=== PATIENT | female | born 1975 | race Caucasian/White ===

== ENCOUNTER → 2017-06-21 | Outpatient (CLI) | payer BC ==
[2017-06-21 18:06] LABS: THYROID STIMULATING HORMONE 0.961 uIu/ml (0.300-4.500)
== END | disposition home or self-care (01) ==
LOC: C.LAB1850 16:22
PROVIDERS: ATTEND Family Medicine
DX: R53.83 Other fatigue (principal); E55.9 Vitamin D deficiency, unspecified

== ENCOUNTER 2020-04-30 05:59 | Observation (INO) ==
--- NOTE | 2020-04-28 16:06 | Anesthesiology Consultation ---
Date of Service April 28, 2020 Assessment & Plan (1) Encounter for pre-operative examination: Chart Review Chart Review: Acceptable Risk for Surgery and Patient NOT seen in Pre Admission Testing - Check test AM DOS Per nursing assessment 04/25/20, patient traveled to [facility] for medical appt one week ago. Covid test 04/23/20= Negative History Surgery Operation Date: 04/30/20 07:30 Proposed Procedures p Panniculectomy - Nahomy Bolaños MD Height/Weight Height: 5 ft 6 in Weight: 104.326 kg Allergies Allergy/AdvReac Type Severity Reaction Status Date / Time Penicillins Allergy Severe Anaphylaxis Unverified 04/25/20 08:40 Medications Home Medications Medication Instructions Recorded Confirmed Last Taken oxycodone-acetaminophen 5 mg-325 1 tab PO Q4H PRN 3 Days #18 tab 04/24/20 04/25/20 Unknown mg tablet Rituxan 1 dose IV Q8WK 04/25/20 04/25/20 Unknown multivitamin 1 tab PO DAILY 04/25/20 04/25/20 Unknown Past Medical History Medical History Arthritis Cardiac murmur does not follow w/ cardio. last echo spring 2018 [facility] Hiatal hernia Non-Hodgkin lymphoma s/p chemo - last treatment May 2019; maintenance IV Rituxan q8w Past Family History Family History Mother Kidney disease Past Surgical History Surgical History History of x 2 History of colonoscopy History of lymph node biopsy x 2 History of removal of Port-a-Cath History of tonsillectomy and adenoidectomy History of vascular access device Social History Smoking Status: Never smoker Do You Dip or Chew Tobacco: No Hx Alcohol Use: Yes Alcohol type: beer, wine and hard liquor alcohol intake frequency: a few times a week Hx Substance Use: No substance use type: does not use Testing Laboratory Results 04/16/20= WBC: 5.5 H/H: 14.2/42.4 PLATELETS: 252 SODIUM: 138 POTASSIUM: 4.2 CHLORIDE: 102 CO2: 28 BUN: 16 CREATININE: 0.69 GLUCOSE: 75 Echocardiogram Date: 01/26/19 EF: 55-59% LV Function: normal RWMA: + none Valvular Disease: + no significant valvular disease
[2020-04-30] MEDS ORDERED: CLINDAMYCIN 600 MG/54 ML BAG IV SCH (06:00)
[2020-04-30] MEDS ORDERED: LR 15ML/HR IV SCH (06:00)
[2020-04-30] MEDS ORDERED: ACETAMINOPHEN 1000 MG/100 ML IV IV ONE (06:21)
[2020-04-30] MEDS ORDERED: LARYING-O-JET KIT (LTA) ONE (06:42)
[2020-04-30] MEDS ORDERED: ONDANSETRON INJ 2 MG/ML 2 ML VIAL ONE (06:42)
[2020-04-30] MEDS ORDERED: LIDOCAINE HCL 2% 2 ML VIAL/AMP(20MG/ML) INFIL ONE (06:42)
[2020-04-30] MEDS ORDERED: DEXAMETHASONE SOD INJ 4 MG/ML VIAL ONE (06:42)
[2020-04-30] MEDS ORDERED: PROPOFOL IV EMULSION 10 MG/ML 20 ML VIAL IV ONE (06:42)
[2020-04-30] MEDS ORDERED: ROCURONIUM BROMIDE 10 MG/ML 5 ML VIAL ONE (06:42)
[2020-04-30] MEDS ORDERED: MIDAZOLAM HCL 1 MG/ML 2ML VIAL ONE (06:42)
[2020-04-30] MEDS ORDERED: fentaNYL citrate 100 MCG/2 ML VIAL ONE ×2 (06:42→09:52)
--- NOTE | 2020-04-30 06:56 | History & Physical Bridge Note ---
Date of Service April 30, 2020 History & Physical Bridge Note I have examined the patient, reviewed the History & Physical and in the interval since the performance of the History & Physical I have noted the following changes of clinical significance: Covid-19 test negative.
[2020-04-30] MEDS ORDERED: LIDOCAINE/EPINEPHRINE 1% 20 ML VIAL ONE (06:57)
[2020-04-30] MEDS ORDERED: BUPIVACAINE 0.25% 30 ML VIAL ONE (06:57)
[2020-04-30] MEDS ORDERED: METOCLOPRAMIDE HCL INJ 5 MG/ML 2 ML VIAL IV PRN (07:13)
[2020-04-30] MEDS ORDERED: fentaNYL citrate 100 MCG/2 ML VIAL IV PRN (07:13)
[2020-04-30] MEDS ORDERED: PROMETHAZINE HCL 12.5 MG in SODIUM CHLORIDE 0.9% 50 ML IV PRN ×2 (07:13→10:28)
[2020-04-30] MEDS ORDERED: HYDROmorphone INJ 2 MG/ML SYR/VIAL IV PRN (07:13)
[2020-04-30] MEDS ORDERED: ePHEDrine sulfate 50 MG/ML AMP IV PRN (07:13)
[2020-04-30] MEDS ORDERED: ATROPINE SULFATE 0.1 MG/ML 10ML SYR IV PRN (07:13)
[2020-04-30] MEDS ORDERED: ONDANSETRON INJ 2 MG/ML 2 ML VIAL IV PRN ×2 (07:13→10:28)
[2020-04-30] MEDS ORDERED: KETOROLAC 30 MG/ML VIAL ONE (09:52)
--- NOTE | 2020-04-30 10:18 | Post Operative Brief Note ---
PG Immediate Post Op with CF Date of Surgery April 30, 2020 Pre & Post Diagnosis Operation Date: 04/30/20 07:30 Pre-Op Diagnosis: Abdominal Pannus Post-Op Diagnosis: Abdominal Pannus I identified the patient and participated in the time-out.: Yes Procedure Operation Date: 04/30/20 07:30 Actual Procedures p Panniculectomy - Nahomy Bolaños MD Surgeon Nahomy Bolaños MD Stores Assistant Pooja Licona PA-C Estimated Blood Loss 25 Findings Consistent with Post-Op Diagnosis Specimens Specimen Description: Permanent Specimen A: Abdominal pannus Drains Odilon Drain (x2)
--- NOTE | 2020-04-30 10:27 | Operative Report ---
PG Post Operative Report Pre & Post Diagnosis Operation Date: 04/30/20 07:30 Pre-Op Diagnosis: Abdominal Pannus Post-Op Diagnosis: Abdominal Pannus I identified the patient and participated in the time-out.: Yes Procedure Operation Date: 04/30/20 07:30 Actual Procedures p Panniculectomy - Nahomy Bolaños MD Surgeon Nahomy Bolaños MD Administrative Support Assistant Pooja Licona PA-C Estimated Blood Loss 25 Findings Consistent with Post-Op Diagnosis Specimens abdominal pannus to pathology Drains RICHARD x2 Anesthesia Type General Complications none Disposition Disposition: Recovery Room Indications overhanging abominal pannus, intertrigo Description of Procedure Risks, benefits, and alternatives of the procedure were explained to the patient who agreed and signed consent. She was identified and marked in the preoperative holding area. She was brought to the operating room where she was positioned supine and placed under general anesthesia without incident. Bailey catheter was placed. Surgical site was prepped and draped sterilely. A time-out procedure was performed. I reassessed my markings which included a lower horizontal abdominal incision with the midportion 7 cm above the vulvar commissure. Incision was marked bilaterally to the ASIS. I began by injecting 1% lidocaine with epinephrine along the planned incision. The lower abdominal incision was made using a 15-blade scalpel to incise epidermis and superficial dermis followed by electrocautery to incise deep dermis, subcutaneous fat, Joby's fascia down to the abdominal wall. Care was taken to bevel superiorly in order to avoid encountering the inguinal region. Electrocautery was used to elevate the anterior abdominal skin flap ligating the perforating vessels with electrocautery. Dissection was carried up to the level of the umbilicus in the midline. At this point, a 15-blade scalpel was used to circumscribe the umbilicus. A vertical midline incision was then made from the incision to the umbilicus and divided in the midline using electrocautery. The umbilicus was then dissected out using electrocautery down to abdominal wall. The umbilical stalk appeared viable throughout the procedure. In order to facilitate inset of the umbilicus, dissection was continued for about an additional 6 cm superior to the umbilicus. At this point, the bed was flexed and the mid portion of the superior skin flap was inset above the mons pubis using 2-0 Vicryl suture. Skin flaps were marked for excision. A 15-blade scalpel was used to make these incisions and the incision was deepened through dermis, subcutaneous fat, Joby's fat using electrocautery. 15 [place] Odilon drains were placed in the wound bed and brought out through a separate stab incision in the mons pubis. The drains were sutured into place using 3-0 nylon. The umbilicus was brought out through an inverted triangular incision in the abdominal wall. This was performed using a 15-blade scalpel. Prior to closure, a total of 10 mL of 0.25% Marcaine plain were injected into the fascia as well as along the incisions. Wound closure was then begun lateral to medial using 2-0 Vicryl Joby's fascia sutures, 2-0 Vicryl deep dermal sutures, 2-0 PDO running superficial Quill suture, 3-0 Monocryl running subcuticular suture. Umbilicus was brought out through the inverted triangle incision and was sutured into place using 4-0 chromic half buried horizontal mattress sutures. The umbilicus was dressed using Xeroform and the incision was dressed using Dermabond Prineo followed by d ry dressings and an abdominal binder. The procedure was tolerated well. The patient was awakened and transferred to recovery in satisfactory condition. EBL 25 cc. Pooja Licona was present and scrubbed throughout the entire procedure and was instrumental in providing retraction of the pannus and assisting in simultaneous wound closure. I attest to the content of the Intraoperative Record and any orders documented therein. Any exceptions are noted below.
[2020-04-30] MEDS ORDERED: MoRPHine SULFATE 4 MG/ML 1 ML CARP\\VIAL IV PRN ×2 (10:28→10:44)
[2020-04-30] MEDS ORDERED: DiphenhydrAMINE HCL 50 MG/ML VIAL IV PRN (10:28)
[2020-04-30] MEDS ORDERED: LORazepam 0.5 MG TAB PO PRN (10:28)
[2020-04-30] MEDS ORDERED: MoRPHine SULFATE 2 MG/ML CARP IV PRN (10:28)
[2020-04-30] MEDS ORDERED: ACETAMINOPHEN 325 MG TAB PO PRN (10:28)
[2020-04-30] MEDS ORDERED: OXYCODONE/ACETAMINOPHEN 5mg/325mg TAB PO PRN ×2 (10:28)
--- NOTE | 2020-04-30 12:04 | Anesthesiology Progress Note ---
Date of Service April 30, 2020 Anesthesia Post Procedure Vital Signs Vital Signs: Temp Pulse Pulse Resp BP BP Pulse Ox 04/30/20 11:54 91 H 16 128/88 100 04/30/20 11:35 36.5 C 93 H 16 127/87 98 04/30/20 11:15 36.2 C L 88 13 128/83 98 04/30/20 11:00 88 13 136/84 98 04/30/20 10:50 104 H 12 122/86 97 04/30/20 10:40 107 H 14 130/83 98 04/30/20 10:30 36.6 C 113 H 18 137/113 H 95 04/30/20 06:27 36.7 C 69 16 127/93 100 Pain Intensity Abdomen: Pain Intensity: 3 Transfer of Care Handoff Completed per policy Notes Mental Status: alert / awake / arousable and participated in evaluation Patient Amnestic to Procedure: Yes Nausea / Vomiting: adequately controlled Pain: adequately controlled Airway Patency, RR, SpO2: stable & adequate BP & HR: stable & adequate Hydration State: stable & adequate Anesthetic Complications: no major complications apparent
--- NOTE | 2020-04-30 12:36 | Post Operative Brief Note ---
PG Immediate Post Op with CF Date of Surgery April 30, 2020 Pre & Post Diagnosis Operation Date: 04/30/20 07:30 Pre-Op Diagnosis: Abdominal Pannus Post-Op Diagnosis: Abdominal Pannus Procedure Operation Date: 04/30/20 07:30 Actual Procedures p Panniculectomy - Nahomy Bolaños MD Surgeon Pooja Licona PA-C Financial Assistance Specialist Pooja Licona PA-C Estimated Blood Loss 25 Specimens Specimen Description: Permanent Specimen A: Abdominal pannus Drains Odilon Drain (x2) Anesthesia Type General
--- NOTE | 2020-04-30 12:40 | Surgery Progress Note ---
Date of Service April 30, 2020 Assessment & Plan (1) S/P panniculectomy: s/p panniculectomy POD#0 dressings intact and drains with appropriate output Patient informed she has medications ordered for nausea reviewed activity restrictions for the night, will d/c in AM Subjective Gladis is resting in semi-mccain position, s/p panniculectomy. She complains of nausea, no other concerns. VSS Physical Exam Physical Exam: dressings intact without saturation. drains with scant bloody output, no significant change in output from end of surgery Results & Data Vital Signs (Past 12 Hours) Vital Signs Temp Pulse Pulse Resp BP BP Pulse Ox 04/30/20 11:54 91 H 16 128/88 100 04/30/20 11:35 36.5 C 93 H 16 127/87 98 04/30/20 11:15 36.2 C L 88 13 128/83 98 04/30/20 11:00 88 13 136/84 98 04/30/20 10:50 104 H 12 122/86 97 04/30/20 10:40 107 H 14 130/83 98 04/30/20 10:30 36.6 C 113 H 18 137/113 H 95 04/30/20 06:27 36.7 C 69 16 127/93 100 PG Care Time/CCT Total # of Minutes Spent Total Time Spent with Patient: Total time spent is greater than 50% in coordination of care (as documented) at patient's floor/unit and/or counseling patient: Coding Level of Care Code None Diagnoses S/P panniculectomy Z98.890
[2020-04-30] MEDS: D5W AND 1/2NSS 1,000 ML IV SCH (13:16)
[2020-04-30] MEDS: ENOXAPARIN INJ 40 MG/0.4 ML SYR SQ SCH (13:17)
[2020-04-30] MEDS: CLINDAMYCIN 600 MG in DEXTROSE 5% 50 ML IV SCH ×2 (16:06→23:18)
[2020-05-01] MEDS: D5W AND 1/2NSS 1,000 ML IV SCH (02:37)
--- NOTE | 2020-05-01 08:24 | Anesthesiology Progress Note ---
Date of Service May 01, 2020 Anesthesia Post Procedure Vital Signs Vital Signs: Temp Pulse Pulse Resp BP Pulse Ox 05/01/20 07:30 36.7 C 64 16 118/76 100 05/01/20 03:47 36.6 C 52 L 16 104/70 98 04/30/20 23:44 36.8 C 68 16 104/66 95 04/30/20 19:52 36.6 C 66 17 123/75 96 04/30/20 14:55 85 16 118/87 98 04/30/20 13:30 61 16 124/80 96 04/30/20 13:28 58 L 16 113/76 95 04/30/20 12:40 74 16 121/76 98 04/30/20 11:54 91 H 16 128/88 100 04/30/20 11:35 36.5 C 93 H 16 127/87 98 04/30/20 11:15 36.2 C L 88 13 128/83 98 04/30/20 11:00 88 13 136/84 98 04/30/20 10:50 104 H 12 122/86 97 04/30/20 10:40 107 H 14 130/83 98 04/30/20 10:30 36.6 C 113 H 18 137/113 H 95 Pain Intensity Abdomen: Pain Intensity: 2 Notes Mental Status: alert / awake / arousable and participated in evaluation Nausea / Vomiting: adequately controlled Pain: adequately controlled Airway Patency, RR, SpO2: stable & adequate BP & HR: stable & adequate Hydration State: stable & adequate Anesthetic Complications: Pt Satisfied with anesthetic care
[2020-05-01] MEDS: ENOXAPARIN INJ 40 MG/0.4 ML SYR SQ SCH (08:34)
[2020-05-01] MEDS: CLINDAMYCIN 600 MG in DEXTROSE 5% 50 ML IV SCH (08:39)
[2020-05-01] MEDS ORDERED: MULTIVITAMIN TAB PO SCH (09:00)
--- NOTE | 2020-05-01 10:06 | Surgery Progress Note ---
Date of Service May 01, 2020 Assessment & Plan (1) S/P panniculectomy: s/p panniculectomy POD#1 Patient instructed on dressing changes. D/C home today after voiding and follow- up via teleheath tomorrow. All questions answered. Subjective POD#1 Nausea resolved and tolerating regular diet. Catheter removed- patient has not voided yet but has ambulated. Gladis is resting in semi-mccain position, s/p panniculectomy. She complains of nausea, no other concerns. VSS Physical Exam Skin: drains stripped with minimal bloody and serous output. umbilicus viable. patient instructed on how to change umbilical dressing and drain sites daily with Xeroform. Results & Data Vital Signs (Past 12 Hours) Vital Signs Temp Pulse Pulse Resp BP Pulse Ox 05/01/20 09:09 36.7 C 85 64 16 118/76 100 05/01/20 07:30 36.7 C 64 16 118/76 100 05/01/20 03:47 36.6 C 52 L 16 104/70 98 04/30/20 23:44 36.8 C 68 16 104/66 95 PG Care Time/CCT Total # of Minutes Spent Total Time Spent with Patient: Total time spent is greater than 50% in coordination of care (as documented) at patient's floor/unit and/or counseling patient: Coding Level of Care Code None Diagnoses S/P panniculectomy Z98.890
--- NOTE | 2020-05-01 13:49 | Discharge Summary ---
Date of Service May 01, 2020 Admission HPI Per Admitting Provider see admission H&P Admission Exam Per Admitting Provider see admission H&P Principal Diagnosis s/p panniculectomy Discharge Exam Skin incision CDI, no evidence of infection. umbilicus viable. drains with serosang output Discharge Data Allergies Allergy/AdvReac Type Severity Reaction Status Date / Time Penicillins Allergy Severe Anaphylaxis Verified 04/30/20 06:25 Procedures Performed Operation Date: 04/30/20 07:30 Actual Procedures p Panniculectomy - Nahomy Bolñaos MD Hospital Course (1) S/P panniculectomy: Patient presented to [facility] with history of abdominal pannus. She was taken to the OR and underwent panniculectomy. There were no intraoperative complications. She was taken to recovery and transferred to med/surg for observation. On POD#1, she was feeling well. She was tolerating a regular diet and ambulating. She was able to void after catheter was removed. On exam, her vitals were stable. Her incisions were CDI. Her drains had appropriate output. She was discharged home with instructions to follow-up with the office in one day. Total Time Total Time Spent Total Time Spent (In Minutes): 20 Total Time Includes: Examination of the Patient, Discharge Planning, Medication Reconciliation and Communication With Other Providers Discharge Plan Discharge Items Patient Disposition: Home - Self-Care Reason For Visit: Abdominal Pannus Discharge Diagnosis: s/p panniculectomy Activity: As commented below Non-emergency contact: Surgeon Call non-emergency contact if: you have any medication questions, your pain is not controlled, you have a fever, your wound has increased redness and your wound has increased drainage Follow-up/Referrals: Ronaldo Brenner [Primary Care Provider] - Diet: Regular Addtl Attending Provider Instructions: ACTIVITY RECOMMENDATIONS: __Normal activities _x_No bending, lifting or straining __No driving _x_Driving allowed when you are off pain medications and you feel you can safely drive _x_Walking permitted __You should have help at home for ___ days DRESSINGS: __No dressings required __Keep dressings dry/in place until first office visit x__Remove dressings _tomorrow during telehealth visit__ and leave dressings off. Must wear binder for first 6 weeks. Recommend garment (underwear/shirt) under binder for comfort. change belly button dressing daily __Apply ice ___ days __Remove dressings and reapply garment __Apply antibiotic ointment (Bacitracin, Neosporin, etc) to wounds 3-4 times/day for 10 days BATHING: _x_Keep dressings dry __Sponge bathing permitted _x_Showering permitted tomorrow after telehealth visit _x_No swimming, hot tubs or soaking in a tub MEDICATIONS: Resume previous medications unless instructed otherwise by your surgeon. _x_Do not use aspirin, Motrin, Advil or Ibuprofen as these may promote bleeding. Please use Tylenol. x__Prescription(s) provided: pain medication was provided at your last office visit OTHER INSTRUCTIONS: _x_Record drain output 2-3 times per day. Drain is ready to be removed hen output is 10cc/24 hours for 2 days. One drain may be ready before the other. Call the office if you feel drain is ready to be removed and we will provide a time for you to come to the office SPECIAL CARE INSTRUCTIONS: * It is normal to have a mild fever after surgery. If your temperature is higher than 101.5 degrees F, please call the office at [phone]. * Constipation is a typical side effect of pain medication. An [id number]-[id number] stool softener will help relieve this. * Leaking around surgical drains may occur and should not cause concern. Sometimes these drains become clogged. If this happens, remove the bulb and milk the clot out of the tube, then replace the bulb. * Drainage from wounds after liposuction is normal and should be expected. Garments will become soiled. You should protect furniture and bedding. This drainage should mostly subside within 2-3 days. Leave garments in place unless instructed to remove them. * If you have unusual drainage from a wound or are concerned you have an infection or have any questions or concerns, please call the office at [phone]. FOLLOW UP VISIT: If not already scheduled, please call the office, , when you return home after surgery to schedule an appointment to be seen in _13__ days. Pending Studies at Discharge: Yes Studies:: pathology Stand-Alone Forms: [facility], Opioid Pain Management, Smoking Cessation Medications and DC Order Prescriptions: Continued oxycodone-acetaminophen [Percocet] 5-325 mg tablet 1 tab PO Q4H PRN (Reason: pain) 3 Days Qty: 18 RF: 0 multivitamin Tablet 1 tab PO DAILY RF: 0 Rituxan 1 dose IV Q8WK RF: 0 Discharge Orders: Discharge Order (Routine); Ordered 05/01/20 Ordered By: Pooja Hackett/Other Patient Handouts: DVT Prevention Admission Data Admit Date/Time: 04/30/20 10:28 Attending Provider: Nahomy Bolaños Admit Provider: Nahomy Bolaños Primary Care Provider: Ronaldo Brenner Other Interventions: Discharge Summary Assessment (RN) Last Done: 05/01/20 09:09 DC Date/Time DO NOT enter until pt leaves facility: 05/01/20 11:03 Coding Level of Care Code D/C Day Management <30 mins Diagnoses S/P panniculectomy Z98.890
== END 2020-05-01 11:03 | disposition home or self-care (01) ==
LOC: 3N 05:59 → ASU 05:59

== ENCOUNTER 2024-02-10 22:59 | Inpatient (IN) ==
--- NOTE | 2024-02-10 23:30 | Emergency Department Note ---
Impression & Plan Pneumonia, SIRS (systemic inflammatory response syndrome), Immunocompromised ED Provider Note NAME: ANTHONY ASTUDILLO AGE: 48 SEX: F : 1975 ARRIVES VIA: Walk-In INFORMANT: Patient ED PROVIDER(S): Gino Freeman MD CHIEF COMPLAINT: Fever, cough, Lymphoma on Immunotherapy., referred. PLAN: Disposition: Admit MEDICAL DECISION MAKING: The patient is a pleasant 48-year-old woman with a past medical history of lymphoma undergoing immunotherapy via [facility] who presents to the emergency department for evaluation of 5 days of daily fevers with cough, congestion. She reports she is on prophylactic Bactrim and anti-viral. She reports she did contact her oncology office on and was able to be seen earlier today in [place]. She reports that she reviewed her symptoms and fevers with her specialist in reports that she was told that she should go directly to the hospital if she is having fevers in the future. However she reports that she did not have a fever in the office today. She reports she had a urine analysis performed and a culture is pending. She was started on levofloxacin and told to hold her Bactrim for now. She was instructed to present to the hospital if fevers continue. She reports fevers resumed this evening and so presents for evaluation. She reports mild nausea but denies vomiting or diarrhea. She denies chest pain or significant notes of breath. On my evaluation the patient is fatigued, uncomfortable in no acute distress, febrile to 39.5 with heart rate in the 120s and vital signs otherwise stable. She appears clinically dry. Lungs are slightly diminished in the left upper lung maciel and otherwise clear. Normal respiratory effort. EKG without overt acute ischemia. Chest x-ray with increased left upper lung field densities suspicious for pneumonia per my preliminary independent interpretation. WBC 3.9K without neutrophilia or left shift. There is mild lymphopenia of 0.48. Hemoglobin and platelets within normal limits. Chemistry without metabolic acidosis. Lactic acid 1.4, within normal limits. LFTs unremarkable. High- sensitivity troponin 3.1, within normal limits. Procalcitonin is undetectable. Respiratory viral panel/[employer] was negative. CTA of the chest negative for PE though further characterizes dense consolidation of majority of the left upper lobe. Blood cultures were obtained on arrival due to presentation concerning for SIRS/sepsis. Empiric antibiotics ordered. Patient did receive 2 L normal saline, 30+ cc per kilogram per ideal body weight. Case was discussed with MAG Valdes hospitalist, who will evaluate the patient for admission. Further management per admitting team. Triage Nursing notes reviewed and agree them. Prior/external medical records reviewed Vital Signs: reviewed Differential diagnosis: Sepsis, UTI, pneumonia, metabolic, electrolyte abnormalities, cardiac sources, intracerebral event, toxicologic, neurologic, as well as other pathologies. ER treatment provided: See below. Diagnostics interpreted by me: ECG: Sinus tachycardia, 119 bpm, no ectopy, left anterior fascicular block, incomplete right bundle branch block, LVH, no overt ST elevation or depression, QTc 422, QRS 86. Cardiac Monitoring: An order for continuous cardiac monitoring was placed and demonstrated inus tachycardia, 119 bpm, no ectopy. Laboratory studies: See below Imaging studies: See below Consultation(s): Case was discussed with MAG Valdes hospitalist, who will evaluate the patient for admission. HPI: The patient is a pleasant 48-year-old woman with a past medical history of lymphoma undergoing immunotherapy via [facility] who presents to the emergency department for evaluation of 5 days of daily fevers with cough, congestion. She reports she is on prophylactic Bactrim and anti-viral. She reports she did contact her oncology office on and was able to be seen earlier today in [place]. She reports that she reviewed her symptoms and fevers with her specialist in reports that she was told that she should go directly to the hospital if she is having fevers in the future. However she reports that she did not have a fever in the office today. She reports she had a urine analysis performed and a culture is pending. She was started on levofloxacin and told to hold her Bactrim for now. She was instructed to present to the hospital if fevers continue. She reports fevers resumed this evening and so presents for evaluation. She reports mild nausea but denies vomiting or diarrhea. She denies chest pain or significant notes of breath. ROS: See above HPI for pertinent positives & negatives. A total of 10 systems reviewed and were otherwise negative. VITALS:See Below PHYSICAL EXAMINATION: GENERAL: Awake, alert, fatigued-appearing, in no distress, BMI 39.2 HENT: Normocephalic, atraumatic. Oropharynx with dry mucous membranes and otherwise unremarkable. EYES: Normal conjunctiva. Sclera non-icteric. NECK: Supple. No nuchal rigidity. FROM. No JVD. RESPIRATORY: Lungs are slightly diminished in the left upper lung maciel and otherwise clear. Normal respiratory effort. CARDIAC: Tachycardic rate, normal rhythm. Extremities warm and well perfused. Pulses equal. ABDOMEN: Soft, non-distended. No tenderness to palpation. No rebound or guarding. No masses. RECTAL: Deferred. MUSCULOSKELETAL: Chest examination reveals no tenderness. The back is symmetrical on inspection without obvious abnormality. There is no CVA tenderness to palpation. No joint edema. LOWER EXTREMITIES: Calves are equal size bilaterally and non-tender. No edema. No discoloration. NEURO: Normal sensorium. No sensory or motor deficits noted. SKIN: No rash or jaundice noted. ED COURSE: Critical Care: I have personally spent greater than 35 minutes of critical care time in the direct management of this patient. This includes bedside care, interpretation of diagnostic studies, and testing, discussion with consultants, patient, and family members, and other required patient management activities. This 35 minutes is in excess of all separately billable procedures. Gino Freeman MD Past Med/Surg History Medical History History of COVID-19 11/2022--mild symptoms, no symptoms now Hiatal hernia Cardiac murmur does not follow w/ cardio. last echo spring 2018 [facility] Non-Hodgkin lymphoma s/p chemo - last treatment AprilMAY 2019 - on revlimid. Undergoing immunotherapy every 3 weeks Arthritis Surgical History History of abdominal surgery umbilical scar revision Dr. Bolaños 10/2020 History of surgery lymph node dissection S/P panniculectomy (~04/30/20) Dr. 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 Beliefs That Will Affect Care: None Current Living Situation: Family Feels Safe at Home: Yes Assistive Devices: None Allergies Allergies Allergy/AdvReac Type Severity Reaction Status Date / Time Penicillins Allergy Severe Anaphylaxis Verified 09/29/23 14:02 Home Meds Home Medications Medication Instructions Recorded Confirmed aspirin 81 mg capsule 81 mg PO HS 09/19/23 09/29/23 cholecalciferol (vitamin D3) 25 25 mcg PO QAM 09/19/23 09/29/23 mcg (1,000 unit) tablet (Vitamin D3) cyanocobalamin (vitamin B-12) 1,000 mcg PO QAM 09/19/23 09/29/23 1,000 mcg tablet (Vitamin B-12) folic acid 1 mg tablet 1 mg PO QAM 09/19/23 09/29/23 multivitamin 1 tab PO QAM 09/19/23 09/29/23 acyclovir 400 mg tablet mg 02/11/24 Results & Data (ED) Vital Signs Vital Signs - 24 hr 02/10/24 23:06 02/10/24 23:26 02/11/24 01:37 Temperature 39.1 C H 36.5 C Temperature Source Oral Oral Pulse Rate 126 H 120 H Pulse Rate [Apical] 108 H Respiratory Rate 18 18 Respiratory Effort / Characteristics Non-Labored Spontaneous Non-Labored Spontaneous Respiratory Depth Normal Normal Respiratory Pattern Regular Blood Pressure 150/83 H Blood Pressure [Right Arm] 126/79 Blood Pressure Mean 105 Blood Pressure Mean [Right Arm] 94 Blood Pressure Position Sitting Pulse Oximetry 98 96 Oxygen Delivery Method Room Air Room Air Sepsis Recent Fever Within 48 Hours Yes Sepsis New/Unexplained Change in Mental Status N/A Sepsis Action Taken by Nursing No Action Required 02/11/24 03:20 02/11/24 03:50 Temperature Temperature Source Pulse Rate 86 Pulse Rate [Apical] 87 Respiratory Rate 18 Respiratory Effort / Characteristics Respiratory Depth Normal Respiratory Pattern Blood Pressure Blood Pressure [Right Arm] 128/86 Blood Pressure Mean Blood Pressure Mean [Right Arm] 100 Blood Pressure Position Pulse Oximetry 99 Oxygen Delivery Method Room Air Sepsis Recent Fever Within 48 Hours Sepsis New/Unexplained Change in Mental Status Sepsis Action Taken by Nursing Laboratory Data Attestation: I reviewed the patient's lab results. 02/10/24 23:39 02/10/24 23:39 Lab Results 02/10/24 02/10/24 02/11/24 Range/Units 23:39 23:55 00:29 WBC 3.93 L (4.8-10.8) K/ul RBC 4.28 (4.20-5.40) M/uL Hgb 12.1 (12.0-16.0) g/dl Hct 36.1 L (37.0-47.0) % MCV 84.3 (80.0-100.0) fL MCH 28.3 (25.0-34.0) pg MCHC 33.5 (32.0-36.0) g/dL RDW Std Deviation 46.0 (36.4-46.3) fL RDW Coeff of Saud 14.8 H (11.5-14.5) % Plt Count 238 (130-400) K/uL MPV 9.8 (9.4-12.4) fL Immature Gran % (Auto) 0.5 % Neut % (Auto) 65.9 % Lymph % (Auto) 12.2 % Anderson % (Auto) 12.2 % Eos % (Auto) 8.9 % Baso % (Auto) 0.3 % Neut # (Auto) 2.59 (1.40-6.50) K/uL Lymph # (Auto) 0.48 L (1.20-3.40) K/uL Anderson # (Auto) 0.48 (0.11-0.59) K/uL Eos # (Auto) 0.35 (0.00-0.50) K/uL Baso # (Auto) 0.01 (0.00-0.20) K/uL Immature Gran # (Auto) 0.02 (0.01-0.20) K/uL PT 11.2 (9.0-12.0) Seconds INR 1.0 (0.9-1.1) Sodium 138 (136-145) mmol/L Potassium 3.7 (3.5-5.1) mmol/L Chloride 104 (98-107) mmol/L Carbon Dioxide 26 (21-32) mmol/L Anion Gap 8 (3-11) BUN 12 (6-23) mg/dl Creatinine 0.74 (0.6-1.2) mg/dl Est Cr Clr Drug Dosing 109.9 ml/min Est GFR ( Amer) 111.8 ml/min Est GFR (Non-Af Amer) 96.5 ml/min BUN/Creatinine Ratio 16.2 (10-20) Glucose 111 H (70-99(Fasting)) mg/dl Lactate 1.4 (0.4-2.0) mmol/L Calcium 8.3 L (8.6-10.3) mg/dl Magnesium 1.7 (1.7-2.4) mg/dl Total Bilirubin 0.3 (0.2-1.0) mg/dl Direct Bilirubin 0.1 (0-0.2) mg/dl AST 15 (13-39) U/L ALT 14 (7-52) U/L Alkaline Phosphatase 58 (34-104) U/L Troponin I High Sens 3.1 (0-14) pg/ml Total Protein 6.8 (6.0-8.3) gm/dl Albumin 3.8 (3.4-5.0) gm/dl Procalcitonin < 0.02 (0-0.5) ng/ml Urine Color Urine Appearance (Clear) Urine pH (4.5-7.5) Ur Specific Hardwick (1.000-1.030) Urine Protein (Negative) Urine Glucose (UA) (Negative) Urine Ketones (Negative) Urine Blood (Negative) Urine Nitrite (Negative) Urine Bilirubin (Negative) Urine Urobilinogen (Negative) Ur Leukocyte Esterase (Negative) Adenovirus (PCR) Not Detected (NotDetected) B. pertussis DNA (PCR) Not Detected (NotDetected) B.parapertussis DNA PCR Not Detected (NotDetected) C. pneumoniae DNA (PCR) Not Detected (NotDetected) Coronavirus OC43 (PCR) Not Detected (NotDetected) Coronavirus HKU1 (PCR) Not Detected (NotDetected) Coronavirus 229E (PCR) Not Detected (NotDetected) SARS-CoV-2 (PCR) Not Detected (NotDetected) Coronavirus NL63 (PCR) Not Detected (NotDetected) Human Metapneumovir PCR Not Detected (NotDetected) Influenza Type A (PCR) Not Detected (NotDetected) Influenza Type B (PCR) Not Detected (NotDetected) M. pneumoniae (PCR) Not Detected (NotDetected) Parainfluenza 1 (PCR) Not Detected (NotDetected) Parainfluenza 2 (PCR) Not Detected (NotDetected) Parainfluenza 3 (PCR) Not Detected (NotDetected) Parainfluenza 4 (PCR) Not Detected (NotDetected) RSV (PCR) Not Detected (NotDetected) Entero/Rhino (PCR) Not Detected (NotDetected) 02/11/24 Range/Units 03:18 WBC (4.8-10.8) K/ul RBC (4.20-5.40) M/uL Hgb (12.0-16.0) g/dl Hct (37.0-47.0) % MCV (80.0-100.0) fL MCH (25.0-34.0) pg MCHC (32.0-36.0) g/dL RDW Std Deviation (36.4-46.3) fL RDW Coeff of Saud (11.5-14.5) % Plt Count (130-400) K/uL MPV (9.4-12.4) fL Immature Gran % (Auto) % Neut % (Auto) % Lymph % (Auto) % Anderson % (Auto) % Eos % (Auto) % Baso % (Auto) % Neut # (Auto) (1.40-6.50) K/uL Lymph # (Auto) (1.20-3.40) K/uL Anderson # (Auto) (0.11-0.59) K/uL Eos # (Auto) (0.00-0.50) K/uL Baso # (Auto) (0.00-0.20) K/uL Immature Gran # (Auto) (0.01-0.20) K/uL PT (9.0-12.0) Seconds INR (0.9-1.1) Sodium (136-145) mmol/L Potassium (3.5-5.1) mmol/L Chloride (98-107) mmol/L Carbon Dioxide (21-32) mmol/L Anion Gap (3-11) BUN (6-23) mg/dl Creatinine (0.6-1.2) mg/dl Est Cr Clr Drug Dosing ml/min Est GFR ( Amer) ml/min Est GFR (Non-Af Amer) ml/min BUN/Creatinine Ratio (10-20) Glucose (70-99(Fasting)) mg/dl Lactate (0.4-2.0) mmol/L Calcium (8.6-10.3) mg/dl Magnesium (1.7-2.4) mg/dl Total Bilirubin (0.2-1.0) mg/dl Direct Bilirubin (0-0.2) mg/dl AST (13-39) U/L ALT (7-52) U/L Alkaline Phosphatase (34-104) U/L Troponin I High Sens (0-14) pg/ml Total Protein (6.0-8.3) gm/dl Albumin (3.4-5.0) gm/dl Procalcitonin (0-0.5) ng/ml Urine Color Yellow Urine Appearance Clear (Clear) Urine pH 6.0 (4.5-7.5) Ur Specific Hardwick > 1.045 H (1.000-1.030) Urine Protein Negative (Negative) Urine Glucose (UA) Negative (Negative) Urine Ketones Negative (Negative) Urine Blood Negative (Negative) Urine Nitrite Negative (Negative) Urine Bilirubin Negative (Negative) Urine Urobilinogen Negative (Negative) Ur Leukocyte Esterase Negative (Negative) Adenovirus (PCR) (NotDetected) B. pertussis DNA (PCR) (NotDetected) B.parapertussis DNA PCR (NotDetected) C. pneumoniae DNA (PCR) (NotDetected) Coronavirus OC43 (PCR) (NotDetected) Coronavirus HKU1 (PCR) (NotDetected) Coronavirus 229E (PCR) (NotDetected) SARS-CoV-2 (PCR) (NotDetected) Coronavirus NL63 (PCR) (NotDetected) Human Metapneumovir PCR (NotDetected) Influenza Type A (PCR) (NotDetected) Influenza Type B (PCR) (NotDetected) M. pneumoniae (PCR) (NotDetected) Parainfluenza 1 (PCR) (NotDetected) Parainfluenza 2 (PCR) (NotDetected) Parainfluenza 3 (PCR) (NotDetected) Parainfluenza 4 (PCR) (NotDetected) RSV (PCR) (NotDetected) Entero/Rhino (PCR) (NotDetected) Administered Medications Albuterol (Albut/Ipratrop 3mg/0.5mg Neb 3 Ml Vial) 3 ml NEB QIDR [facility]; Protocol Stop: 03/12/24 06:59 Last Admin: 02/11/24 15:49 Dose: 3 ml Documented By: Admin: 02/11/24 11:21 Dose: 3 ml Documented By: Admin: 02/11/24 08:16 Dose: 3 ml Documented By: EM Cyanocobalamin (Cyanocobalamin (B-12) 500 Mcg Tablet) [facility] [place] [place]: 03/12/24 08:59 Last Admin: 02/11/24 08:37 Dose: 1,000 mcg Documented By: OO Enoxaparin Sodium (Enoxaparin Inj 40 Mg/0.4 Ml Syr) 40 mg SQ Q24H [facility] Stop: 03/12/24 08:59 Last Admin: 02/11/24 08:39 Dose: 40 mg Documented By: OO Folic Acid (Folic Acid 1 Mg Tab) [facility] [place] [place]: 03/12/24 08:59 Last Admin: 02/11/24 08:38 Dose: 1 mg Documented By: OO Guaifenesin (Guaifenesin 600 Mg Tabcr) 1,200 mg PO Q12 [facility] Stop: 03/12/24 08:59 Last Admin: 02/11/24 08:39 Dose: 1,200 mg Documented By: OO Miscellaneous (Order Awaiting Action: Lenalidomide [Revlimid] 20 Mg Capsule) 1 each N/A QS [facility] Stop: 03/12/24 07:59 Last Admin: 02/11/24 10:02 Dose: Not Given Documented By: OO Multivitamins (Multivitamin Tab) 1 [facility] [place]: 03/12/24 08:59 Last Admin: 02/11/24 08:36 Dose: 1 tab Documented By: OO Vitamin D (Cholecalciferol 25 Mcg (1000 Units) Tab) [facility] [place]: 03/12/24 08:59 Last Admin: 02/11/24 08:36 Dose: 25 mcg Documented By: OO Discontinued Medications Sodium Chloride (Nss) 1,000 mls @ 999 mls/hr IV .Q1H1M ANN-MARIE Stop: 02/11/24 01:30 Last Infusion: 02/11/24 03:16 Dose: Infused Documented By: Admin: 02/11/24 01:34 Dose: 999 mls/hr Documented By: Infusion: 02/11/24 01:25 Dose: Infused Documented By: Admin: 02/11/24 00:24 Dose: 999 mls/hr Documented By: Acetaminophen (Ofirmev) 1,000 mg in 100 mls @ 400 mls/hr IV NOW STA Stop: 02/10/24 23:42 Last Infusion: 02/11/24 01:37 Dose: Infused Documented By: Admin: 02/11/24 00:24 Dose: 400 mls/hr Documented By: EUGENIA Cefepime HCl (Maxipime) 2,000 mg in 20 mls @ 5 mls/min IV NOW STA; Protocol Stop: 02/10/24 23:31 Last Admin: 02/11/24 00:24 Dose: 5 mls/min Documented By: EUGENIA Vancomycin HCl 2,500 mg/ (Sodium Chloride) 550 mls @ 200 mls/hr IV NOW ONE Stop: 02/11/24 05:21 Last Infusion: 02/11/24 06:02 Dose: Infused Documented By: [facility] Admin: 02/11/24 03:16 Dose: 200 mls/hr Documented By: EUGENIA Ertapenem (Invanz) 10 mls @ 2 mls/min IV NOW STA Stop: 02/11/24 04:18 Last Admin: 02/11/24 05:42 Dose: 2 mls/min Documented By: [facility] Ioversol (Optiray 320 125ml) 117 ml IV ONCE ONE Stop: 02/11/24 01:34 Last Admin: 02/11/24 01:27 Dose: 117 ml Documented By: Angie [employer] Data Radiologist's Impression: Chest X-Ray 02/10/24 23:27 XR chest 1V portable CLINICAL HISTORY: Sepsis COMPARISON STUDY: PET/CT November 17, 2022. Chest radiograph September 07, 2022. FINDINGS: There is no pneumothorax or pleural effusion. Pulmonary vascularity is normal. Band-like left upper lobe airspace opacity is present. Cardiomediastinal silhouette is unremarkable. IMPRESSION: Left upper lobe airspace opacity suggestive of pneumonia. Post treatment radiographs to ensure resolution are recommended. ACT 112: Negative or not required by law. Electronically signed by: Roger Chang M.D. 02/11/2024 7:52 AM Chest X-Ray 02/10/24 23:27 XR chest 1V portable CLINICAL HISTORY: Sepsis COMPARISON STUDY: PET/CT November 17, 2022. Chest radiograph September 07, 2022. FINDINGS: There is no pneumothorax or pleural effusion. Pulmonary vascularity is normal. Band-like left upper lobe airspace opacity is present. Cardiomediastinal silhouette is unremarkable. IMPRESSION: Left upper lobe airspace opacity suggestive of pneumonia. Post treatment radiographs to ensure resolution are recommended. ACT 112: Negative or not required by law. Electronically signed by: Roger Chang M.D. 02/11/2024 7:52 AM Abdomen/Pelvis CT 02/11/24 01:03 Exam(s): CT ABDOMEN + PELVIS With Contrast IV Amt: 117 ml EXAM: CT Abdomen and Pelvis With Intravenous Contrast CLINICAL HISTORY: Reason for exam: fever/sepsis, lymphoma. TECHNIQUE: Axial computed tomography images of the abdomen and pelvis with intravenous contrast. CTDI is 28.14 mGy and DLP is 1457.61 mGy-cm. Automated exposure control was utilized for the study. A dose lowering technique was utilized adhering to the principles of ALARA. CONTRAST: Patient received 117 ml of IV contrast COMPARISON: No relevant prior studies available. FINDINGS: Lung bases: Unremarkable. No mass. No consolidation. Mediastinum: Small hiatal hernia. ABDOMEN: Liver: Unremarkable. No mass. Gallbladder and bile ducts: Unremarkable. No calcified stones. No ductal dilation. Pancreas: Unremarkable. No mass. No ductal dilation. Spleen: Unremarkable. No splenomegaly. Adrenals: Unremarkable. No mass. Kidneys and ureters: Retroaortic left renal vein. No hydronephrosis or delayed nephrogram. Stomach and bowel: Unremarkable. No obstruction. No mucosal thickening. PELVIS: Appendix: No findings to suggest acute appendicitis. Bladder: Unremarkable. No mass. Reproductive: Unremarkable as visualized. ABDOMEN and PELVIS: Intraperitoneal space: Unremarkable. No free air. No significant fluid collection. Bones/joints: No acute fracture. No dislocation. Soft tissues: Unremarkable. Vasculature: See above. Lymph nodes: Unremarkable. No enlarged lymph nodes. IMPRESSION: No acute findings in the abdomen or pelvis. Electronically signed by: Omari Kingsley MD 02/11/24 03:57 AM Chest CTA 02/11/24 01:03 Exam(s): CTA CHEST IV Amt: 117ml EXAM: CT Angiography Chest With Intravenous Contrast CLINICAL HISTORY: Reason for exam: cp, sob, fever, lymphoma, r/o PE. TECHNIQUE: Axial computed tomographic angiography images of the chest with intravenous contrast. CTDI is 27.86 mGy and DLP is 816.02 mGy-cm. Automated exposure control was utilized for the study. A dose lowering technique was utilized adhering to the principles of ALARA. MIP reconstructed images were created and reviewed. COMPARISON: No relevant prior studies available. FINDINGS: Pulmonary arteries: Unremarkable. No pulmonary embolism. Aorta: No acute findings. No thoracic aortic aneurysm. Lungs: Airspace consolidation throughout the left upper lobe, consistent with pneumonia. Pleural space: Unremarkable. No significant effusion. No pneumothorax. Heart: Unremarkable. No cardiomegaly. No significant pericardial effusion. No evidence of RV dysfunction. Mediastinum: Small hiatal hernia. Bones/joints: No acute fracture. No dislocation. Soft tissues: Unremarkable. Lymph nodes: Unremarkable. No enlarged lymph nodes. Liver: Hepatic steatosis. IMPRESSION: Airspace consolidation throughout the left upper lobe, consistent with pneumonia. Electronically signed by: Omari Kingsley MD 02/11/24 02:40 AM Discharge Plan Visit Data Chief Complaint: Fever Stated Complaint: FEVER, CHILLS ED Provider: Gino Freeman Discharge Problem: Pneumonia, SIRS (systemic inflammatory response syndrome), Immunocompromised Patient Disposition: Admitted As Inpatient Discharge Instructions Interventions: ED Discharge Assessment Last Done: 02/11/24 05:00 Discharge Problem: Pneumonia Qualifiers: Pneumonia type: due to unspecified organism Laterality: left Lung location: u pper lobe of lung Qualified Code(s): J18.9 - Pneumonia, unspecified organism
[2024-02-10 23:59] LABS: Basophils # (auto) 0.01 K/uL (0.00-0.20); Basophils % (auto) 0.3 %; Eosinophils # (auto) 0.35 K/uL (0.00-0.50); Eosinophils % (auto) 8.9 %; Hematocrit (blood only) 36.1 % (37.0-47.0); Hemoglobin 12.1 g/dl (12.0-16.0); Immature Granulocytes # (auto) 0.02 K/uL (0.01-0.20); Immature Granulocytes % (auto) 0.5 %; Lymphocytes # (auto) 0.48 K/uL (1.20-3.40); Lymphocytes % (auto) 12.2 %; Mean Corpuscular Hemoglobin 28.3 pg (25.0-34.0); Mean Corpuscular Hgb Conc 33.5 g/dL (32.0-36.0); Mean Corpuscular Volume 84.3 fL (80.0-100.0); Mean Platelet Volume 9.8 fL (9.4-12.4); Monocytes # (auto) 0.48 K/uL (0.11-0.59); Monocytes % (auto) 12.2 %; Neutrophils # (auto) 2.59 K/uL (1.40-6.50); Neutrophils % (auto) 65.9 %; Platelet Count 238 K/uL (130-400); RDW Coefficient of Variation 14.8 % (11.5-14.5); Red Blood Count 4.28 M/uL (4.20-5.40); White Blood Count 3.93 K/ul (4.8-10.8)
[2024-02-11 00:17] LABS: Albumin Level 3.8 gm/dl (3.4-5.0); BUN Creatinine Ratio 16.2 (10-20); Bilirubin Direct 0.1 mg/dl (0-0.2); Bilirubin,Total 0.3 mg/dl (0.2-1.0); Calcium 8.3 mg/dl (8.6-10.3); Creatinine Clr Calc Pharmacy 109.9 ml/min; Est GFR (African American) 111.8 ml/min; Est GFR (Non-African American) 96.5 ml/min; Magnesium 1.7 mg/dl (1.7-2.4); Potassium 3.7 mmol/L (3.5-5.1); Total Protein 6.8 gm/dl (6.0-8.3)
[2024-02-11 00:23] LABS: Troponin I High Sensitivity 3.1 pg/ml (0-14)
[2024-02-11] MEDS: SODIUM CHLORIDE 0.9% 1,000 ML IV SCH (00:24)
[2024-02-11] MEDS: ACETAMINOPHEN 1,000 MG/100 ML VIAL IV STA (00:24)
[2024-02-11] MEDS: CEFEPIME 2,000 MG/20 ML VIAL IV STA (00:24)
[2024-02-11 00:42] LABS: Prothrombin Time 11.2 Seconds (9.0-12.0)
[2024-02-11] MEDS: OPTIRAY 320 125ml IV ONE (01:27)
[2024-02-11 01:33] LABS: Adenovirus PCR Not Detected (NotDetected); Bordetella parapertussis PCR Not Detected (NotDetected); Bordetella pertussis PCR Not Detected (NotDetected); Chlamydia pneumoniae PCR Not Detected (NotDetected); Coronavirus 229E PCR Not Detected (NotDetected); Coronavirus CoV-2 (COVID19)PCR Not Detected (NotDetected); Coronavirus HKU1 PCR Not Detected (NotDetected); Coronavirus NL63 PCR Not Detected (NotDetected); Coronavirus OC43PCR Not Detected (NotDetected); Human Metapneumovirus PCR Not Detected (NotDetected); Influenza A PCR Not Detected (NotDetected); Influenza B PCR Not Detected (NotDetected); Mycoplasma pneumoniae PCR Not Detected (NotDetected); Parainfluenza Virus 1 PCR Not Detected (NotDetected); Parainfluenza Virus 2 PCR Not Detected (NotDetected); Parainfluenza Virus 3 PCR Not Detected (NotDetected); Parainfluenza Virus 4 PCR Not Detected (NotDetected); Respiratory Syncytial VirusPCR Not Detected (NotDetected); Rhinovirus/Enterovirus PCR Not Detected (NotDetected)
[2024-02-11] MEDS ORDERED: VANCOMYCIN CONSULT ACTIVE PRN (02:37)
--- NOTE | 2024-02-11 02:41 | CT Scan Report ---
Exam(s): CTA CHEST IV Amt: 117ml EXAM: CT Angiography Chest With Intravenous Contrast CLINICAL HISTORY: Reason for exam: cp, sob, fever, lymphoma, r/o PE. TECHNIQUE: Axial computed tomographic angiography images of the chest with intravenous contrast. CTDI is 27.86 mGy and DLP is 816.02 mGy-cm. Automated exposure control was utilized for the study. A dose lowering technique was utilized adhering to the principles of ALARA. MIP reconstructed images were created and reviewed. COMPARISON: No relevant prior studies available. FINDINGS: Pulmonary arteries: Unremarkable. No pulmonary embolism. Aorta: No acute findings. No thoracic aortic aneurysm. Lungs: Airspace consolidation throughout the left upper lobe, consistent with pneumonia. Pleural space: Unremarkable. No significant effusion. No pneumothorax. Heart: Unremarkable. No cardiomegaly. No significant pericardial effusion. No evidence of RV dysfunction. Mediastinum: Small hiatal hernia. Bones/joints: No acute fracture. No dislocation. Soft tissues: Unremarkable. Lymph nodes: Unremarkable. No enlarged lymph nodes. Liver: Hepatic steatosis. IMPRESSION: Airspace consolidation throughout the left upper lobe, consistent with pneumonia. Electronically signed by: Omari Kingsley MD 02/11/24 02:40 AM
[2024-02-11] MEDS: VANCOMYCIN HCL 2,500 MG in SODIUM CHLORIDE 0.9% 500 ML IV ONE (03:16)
--- NOTE | 2024-02-11 03:58 | CT Scan Report ---
Exam(s): CT ABDOMEN + PELVIS With Contrast IV Amt: 117 ml EXAM: CT Abdomen and Pelvis With Intravenous Contrast CLINICAL HISTORY: Reason for exam: fever/sepsis, lymphoma. TECHNIQUE: Axial computed tomography images of the abdomen and pelvis with intravenous contrast. CTDI is 28.14 mGy and DLP is 1457.61 mGy-cm. Automated exposure control was utilized for the study. A dose lowering technique was utilized adhering to the principles of ALARA. CONTRAST: Patient received 117 ml of IV contrast COMPARISON: No relevant prior studies available. FINDINGS: Lung bases: Unremarkable. No mass. No consolidation. Mediastinum: Small hiatal hernia. ABDOMEN: Liver: Unremarkable. No mass. Gallbladder and bile ducts: Unremarkable. No calcified stones. No ductal dilation. Pancreas: Unremarkable. No mass. No ductal dilation. Spleen: Unremarkable. No splenomegaly. Adrenals: Unremarkable. No mass. Kidneys and ureters: Retroaortic left renal vein. No hydronephrosis or delayed nephrogram. Stomach and bowel: Unremarkable. No obstruction. No mucosal thickening. PELVIS: Appendix: No findings to suggest acute appendicitis. Bladder: Unremarkable. No mass. Reproductive: Unremarkable as visualized. ABDOMEN and PELVIS: Intraperitoneal space: Unremarkable. No free air. No significant fluid collection. Bones/joints: No acute fracture. No dislocation. Soft tissues: Unremarkable. Vasculature: See above. Lymph nodes: Unremarkable. No enlarged lymph nodes. IMPRESSION: No acute findings in the abdomen or pelvis. Electronically signed by: Omari Kingsley MD 02/11/24 03:57 AM
[2024-02-11 04:01] LABS: Appearance Urine Clear (Clear); Bilirubin Urine Negative (Negative); Blood Urine Negative (Negative); Color Urine Yellow; Glucose Urine UA Negative (Negative); Ketones Urine Negative (Negative); Leukocyte Esterase Urine Negative (Negative); Nitrite Urine Negative (Negative); Protein Urine Negative (Negative); Specific Gravity Urine > 1.045 (1.000-1.030); Urobilinogen Urine Negative (Negative)
--- NOTE | 2024-02-11 04:08 | History & Physical Report ---
Date of Service February 11, 2024 Assessment & Plan (1) Pneumonia of left upper lobe due to infectious organism: (2) Immunocompromised: (3) Non-Hodgkin lymphoma: Plan Pneumonia of left upper lobe- History of anaphylaxis to penicillins Vancomycin IV per pharmacokinetic monitoring Ertapenem 1 g IV every 24 hours Duonebs every 4 hours while awake and every 2 hours when necessary. Guaifenesin extended release 1200 mg p.o. twice daily MRSA swab BioFire testing negative Acetaminophen 650 mg by mouth every 6 hours as needed for mild pain or fever Zofran 4 mg IV every 6 hours as needed Non-Hodgkin's lymphoma completed chemotherapy above as noted Presently undergoing immunotherapy every 3 weeks, with next treatment 02/21/2024 Bactrim was placed temporarily on hold by oncology in [place] and had for started on levofloxacin as presumptive treatment Continue to hold Bactrim, and place another antibiotics as above as noted She reports that she is on an antiviral prophylaxis with sounds like acyclovir twice daily, but need to verify dosing Continue Revlimid, folic acid, vitamin B12, vitamin D3 and aspirin History of Present Illness Chief Complaint: The patient was referred to the emergency department by her oncologist due to the development of a recurrent temperature Primary Care Provider: Ronaldo Brenner The patient is a 48-year-old female presently undergoing every 3 week immunotherapy for lymphoma, with next dosing due on 02/21/2024. Over the past 5 days she has had some mild respiratory symptoms of shortness of breath and dyspnea on exertion, with an intermittent low-grade temperature. She saw her oncologist the morning of 02/10 in [place], and had her prophylactic Bactrim changed to levofloxacin, and was told to present to the emergency department if she had recurrent temperatures. She developed a temperature again later on this evening, presented to the emergency department at [facility] for assessment, and workup including chest x-ray and CT angiography of chest showed a left upper lobe pneumonia necessitating IV antibiotic therapy, and was referred to the hospitalist service for admission Allergies Allergy/AdvReac Type Severity Reaction Status Date / Time Penicillins Allergy Severe Anaphylaxis Verified 09/29/23 14:02 Home Medications Medication Instructions Recorded Confirmed Type aspirin 81 mg capsule 81 mg PO HS 09/19/23 09/29/23 History cholecalciferol (vitamin D3) 25 25 mcg PO QAM 09/19/23 09/29/23 History mcg (1,000 unit) tablet (Vitamin D3) cyanocobalamin (vitamin B-12) 1,000 mcg PO QAM 09/19/23 09/29/23 History 1,000 mcg tablet (Vitamin B-12) folic acid 1 mg tablet 1 mg PO QAM 09/19/23 09/29/23 History lenalidomide 20 mg capsule 20 mg PO HS 09/19/23 09/29/23 History (Revlimid) multivitamin 1 tab PO QAM 09/19/23 09/29/23 History Past Med/Surg History Medical History (Updated 02/11/24 @ 04:29 by Daniel Marin MD) History of COVID-19 11/2022--mild symptoms, no symptoms now Hiatal hernia Cardiac murmur does not follow w/ cardio. last echo spring 2018 [facility] Non-Hodgkin lymphoma s/p chemo - last treatment AprilMAY 2019 - on revlimid. Undergoing immunotherapy every 3 weeks Arthritis Surgical History History of abdominal surgery umbilical scar revision Dr. Bolaños 10/2020 History of surgery lymph node dissection S/P panniculectomy (~04/30/20) Dr. Bolaños History of lymph node biopsy x 2 History of tonsillectomy and adenoidectomy History of x 2 History of colonoscopy History of vascular access device History of removal of Port-a-Cath Family History Mother Kidney disease Other No family history of adverse response to anesthesia Social History Smoking Status: Never smoker Second Hand Exposure: No; Do You Dip or Chew Tobacco: No; Hx Alcohol Use: Yes Alcohol type: beer, wine and hard liquor Hx Substance Use: No Preferred Language: Azeri Communication Ability: Effective Operations Supervisor Required: No Beliefs That Will Affect Care: None Current Living Situation: Spouse and Family Feels Safe at Home: Yes Assistive Devices: Glasses Review of Systems Review of Systems: The patient denies chest pain, palpitations, lower extremity swelling, sore throat, chills, sweats, nausea, vomiting, diarrhea , constipation, abdominal pain, pelvic pain, blood in urine or stool, dysuria, urinary frequency or urgency, lightheadedness, dizziness, headache, memory loss, loss of consciousness, rash, abnormal bruising or bleeding, imbalance, focal or generalized weakness, numbness or tingling in arms or legs, generalized arthralgias or myalgias, back or neck pain, or night sweats. The review of systems is otherwise negative other than for that already noted above, and at least 10 systems have been reviewed. Physical Exam Physical Exam: The patient is awake, alert and oriented 3, well developed and well nourished, normocephalic and atraumatic, lying in bed and in no acute distress. HEENT--PERRL, EOMI, mucous membranes and oropharynx normal. Neck--supple. No JVD. No bruits. Thyroid normal, trachea midline, no adenopathy. Heart--normal S1 and S2. No murmurs, rubs or gallops. Lungs--few coarse breath sounds left upper and middle lobes. No respiratory distress, no accessory muscle use. Abdomen--normal bowel sounds and soft. Nontender. Nondistended. Extremities--No edema. Dermatologic--normal skin turgor, normal color, no abnormal lymph nodes, no rash. Neurologic--cranial nerves II through XII grossly intact. Rheumatologic--normal range of motion. Psychiatric--normal affect. Results & Data Results & Data Vital Signs (Past 12 Hours) Vital Signs Temp Pulse Pulse Resp BP BP Pulse Ox 02/11/24 03:20 87 18 128/86 99 02/11/24 01:37 36.5 C 108 H 18 126/79 96 02/10/24 23:26 120 H 02/10/24 23:06 39.1 C H 126 H 18 150/83 H 98 O2 Del Method 02/11/24 03:20 Room Air 02/11/24 01:37 Room Air 02/10/24 23:26 02/10/24 23:06 Room Air Laboratory Results Laboratory Results WBC 3.93 K/ul (4.8-10.8) L 02/10/24 23:39 RBC 4.28 M/uL (4.20-5.40) 02/10/24 23:39 Hgb 12.1 g/dl (12.0-16.0) 02/10/24 23:39 Hct 36.1 % (37.0-47.0) L 02/10/24 23:39 MCV 84.3 fL (80.0-100.0) 02/10/24 23:39 MCH 28.3 pg (25.0-34.0) 02/10/24 23:39 MCHC 33.5 g/dL (32.0-36.0) 02/10/24 23:39 RDW Std Deviation 46.0 fL (36.4-46.3) 02/10/24 23:39 RDW Coeff of Saud 14.8 % (11.5-14.5) H 02/10/24 23:39 Plt Count 238 K/uL (130-400) 02/10/24 23:39 MPV 9.8 fL (9.4-12.4) 02/10/24 23:39 Immature Gran % (Auto) 0.5 % 02/10/24 23:39 Neut % (Auto) 65.9 % 02/10/24 23:39 Lymph % (Auto) 12.2 % 02/10/24 23:39 Spink % (Auto) 12.2 % 02/10/24 23:39 Eos % (Auto) 8.9 % 02/10/24 23:39 Baso % (Auto) 0.3 % 02/10/24 23:39 Neut # (Auto) 2.59 K/uL (1.40-6.50) 02/10/24 23:39 Lymph # (Auto) 0.48 K/uL (1.20-3.40) L 02/10/24 23:39 Spink # (Auto) 0.48 K/uL (0.11-0.59) 02/10/24 23:39 Eos # (Auto) 0.35 K/uL (0.00-0.50) 02/10/24 23:39 Baso # (Auto) 0.01 K/uL (0.00-0.20) 02/10/24 23:39 Immature Gran # (Auto) 0.02 K/uL (0.01-0.20) 02/10/24 23:39 PT 11.2 Seconds (9.0-12.0) 02/10/24 23:39 INR 1.0 (0.9-1.1) 02/10/24 23:39 Sodium 138 mmol/L (136-145) 02/10/24 23:39 Potassium 3.7 mmol/L (3.5-5.1) 02/10/24 23:39 Chloride 104 mmol/L (98-107) 02/10/24 23:39 Carbon Dioxide 26 mmol/L (21-32) 02/10/24 23:39 Anion Gap 8 (3-11) 02/10/24 23:39 BUN 12 mg/dl (6-23) 02/10/24 23:39 Creatinine 0.74 mg/dl (0.6-1.2) 02/10/24 23:39 Est Cr Clr Drug Dosing 109.9 ml/min 02/10/24 23:39 Est GFR ( Amer) 111.8 ml/min 02/10/24 23:39 Est GFR (Non-Af Amer) 96.5 ml/min 02/10/24 23:39 BUN/Creatinine Ratio 16.2 (10-20) 02/10/24 23:39 Glucose 111 mg/dl (70-99(Fasting)) H 02/10/24 23:39 Lactate 1.4 mmol/L (0.4-2.0) 02/10/24 23:55 Calcium 8.3 mg/dl (8.6-10.3) L 02/10/24 23:39 Magnesium 1.7 mg/dl (1.7-2.4) 02/10/24 23:39 Total Bilirubin 0.3 mg/dl (0.2-1.0) 02/10/24 23:39 Direct Bilirubin 0.1 mg/dl (0-0.2) 02/10/24 23:39 AST 15 U/L (13-39) 02/10/24 23:39 ALT 14 U/L (7-52) 02/10/24 23:39 Alkaline Phosphatase 58 U/L (34-104) 02/10/24 23:39 Troponin I High Sens 3.1 pg/ml (0-14) 02/10/24 23:39 Total Protein 6.8 gm/dl (6.0-8.3) 02/10/24 23:39 Albumin 3.8 gm/dl (3.4-5.0) 02/10/24 23:39 Procalcitonin < 0.02 ng/ml (0-0.5) 02/10/24 23:39 Urine Color Yellow 02/11/24 03:18 Urine Appearance Clear (Clear) 02/11/24 03:18 Urine pH 6.0 (4.5-7.5) 02/11/24 03:18 Ur Specific Delano > 1.045 (1.000-1.030) H 02/11/24 03:18 Urine Protein Negative (Negative) 02/11/24 03:18 Urine Glucose (UA) Negative (Negative) 02/11/24 03:18 Urine Ketones Negative (Negative) 02/11/24 03:18 Urine Blood Negative (Negative) 02/11/24 03:18 Urine Nitrite Negative (Negative) 02/11/24 03:18 Urine Bilirubin Negative (Negative) 02/11/24 03:18 Urine Urobilinogen Negative (Negative) 02/11/24 03:18 Ur Leukocyte Esterase Negative (Negative) 02/11/24 03:18 Adenovirus (PCR) Not Detected (NotDetected) 02/11/24 00:29 B. pertussis DNA (PCR) Not Detected (NotDetected) 02/11/24 00:29 B.parapertussis DNA PCR Not Detected (NotDetected) 02/11/24 00:29 C. pneumoniae DNA (PCR) Not Detected (NotDetected) 02/11/24 00:29 Coronavirus OC43 (PCR) Not Detected (NotDetected) 02/11/24 00:29 Coronavirus HKU1 (PCR) Not Detected (NotDetected) 02/11/24 00:29 Coronavirus 229E (PCR) Not Detected (NotDetected) 02/11/24 00:29 SARS-CoV-2 (PCR) Not Detected (NotDetected) 02/11/24 00:29 Coronavirus NL63 (PCR) Not Detected (NotDetected) 02/11/24 00:29 Human Metapneumovir PCR Not Detected (NotDetected) 02/11/24 00:29 Influenza Type A (PCR) Not Detected (NotDetected) 02/11/24 00:29 Influenza Type B (PCR) Not Detected (NotDetected) 02/11/24 00:29 M. pneumoniae (PCR) Not Detected (NotDetected) 03/23/24 00:29 Parainfluenza 1 (PCR) Not Detected (NotDetected) 02/11/24 00:29 Parainfluenza 2 (PCR) Not Detected (NotDetected) 02/11/24 00:29 Parainfluenza 3 (PCR) Not Detected (NotDetected) 02/11/24 00:29 Parainfluenza 4 (PCR) Not Detected (NotDetected) 02/11/24 00:29 RSV (PCR) Not Detected (NotDetected) 02/11/24 00:29 Entero/Rhino (PCR) Not Detected (NotDetected) 02/11/24 00:29 Impressions Abdomen/Pelvis CT 02/11/24 01:03 Exam(s): CT ABDOMEN + PELVIS With Contrast IV Amt: 117 ml EXAM: CT Abdomen and Pelvis With Intravenous Contrast CLINICAL HISTORY: Reason for exam: fever/sepsis, lymphoma. TECHNIQUE: Axial computed tomography images of the abdomen and pelvis with intravenous contrast. CTDI is 28.14 mGy and DLP is 1457.61 mGy-cm. Automated exposure control was utilized for the study. A dose lowering technique was utilized adhering to the principles of ALARA. CONTRAST: Patient received 117 ml of IV contrast COMPARISON: No relevant prior studies available. FINDINGS: Lung bases: Unremarkable. No mass. No consolidation. Mediastinum: Small hiatal hernia. ABDOMEN: Liver: Unremarkable. No mass. Gallbladder and bile ducts: Unremarkable. No calcified stones. No ductal dilation. Pancreas: Unremarkable. No mass. No ductal dilation. Spleen: Unremarkable. No splenomegaly. Adrenals: Unremarkable. No mass. Kidneys and ureters: Retroaortic left renal vein. No hydronephrosis or delayed nephrogram. Stomach and bowel: Unremarkable. No obstruction. No mucosal thickening. PELVIS: Appendix: No findings to suggest acute appendicitis. Bladder: Unremarkable. No mass. Reproductive: Unremarkable as visualized. ABDOMEN and PELVIS: Intraperitoneal space: Unremarkable. No free air. No significant fluid collection. Bones/joints: No acute fracture. No dislocation. Soft tissues: Unremarkable. Vasculature: See above. Lymph nodes: Unremarkable. No enlarged lymph nodes. IMPRESSION: No acute findings in the abdomen or pelvis. Electronically signed by: Omari Kingsley MD 02/11/24 03:57 AM Chest CTA 02/11/24 01:03 Exam(s): CTA CHEST IV Amt: 117ml EXAM: CT Angiography Chest With Intravenous Contrast CLINICAL HISTORY: Reason for exam: cp, sob, fever, lymphoma, r/o PE. TECHNIQUE: Axial computed tomographic angiography images of the chest with intravenous contrast. CTDI is 27.86 mGy and DLP is 816.02 mGy-cm. Automated exposure control was utilized for the study. A dose lowering technique was utilized adhering to the principles of ALARA. MIP reconstructed images were created and reviewed. COMPARISON: No relevant prior studies available. FINDINGS: Pulmonary arteries: Unremarkable. No pulmonary embolism. Aorta: No acute findings. No thoracic aortic aneurysm. Lungs: Airspace consolidation throughout the left upper lobe, consistent with pneumonia. Pleural space: Unremarkable. No significant effusion. No pneumothorax. Heart: Unremarkable. No cardiomegaly. No significant pericardial effusion. No evidence of RV dysfunction. Mediastinum: Small hiatal hernia. Bones/joints: No acute fracture. No dislocation. Soft tissues: Unremarkable. Lymph nodes: Unremarkable. No enlarged lymph nodes. Liver: Hepatic steatosis. IMPRESSION: Airspace consolidation throughout the left upper lobe, consistent with pneumonia. Electronically signed by: Omari Kingsley MD 02/11/24 02:40 AM Code Status & VTE Plan Code Status Full code VTE Prophylaxis Plan VTE Prophylaxis will be ordered: Yes PG Care Time/CCT Total # of Minutes Spent Total Time Spent with Patient: Total time spent is greater than 50% in coordination of care (as documented) at patient's floor/unit and/or counseling patient: Coding Level of Care Code 40952 INT INP/OBS CARE 3/75MIN Diagnoses Pneumonia of left upper lobe due to infectious organism J18.9 Immunocompromised D84.9 Non-Hodgkin lymphoma C85.90
[2024-02-11] MEDS ORDERED: ALBUT/IPRATROP 3MG/0.5MG NEB 3 ML VIAL NEB PRN (04:16)
[2024-02-11] MEDS ORDERED: ONDANSETRON INJ 2 MG/ML 2 ML VIAL IV PRN (05:20)
[2024-02-11] MEDS: ERTAPENEM SODIUM 10 ML IV STA (05:42)
--- NOTE | 2024-02-11 07:43 | Hospitalist Progress Note ---
Date of Service February 11, 2024 Assessment & Plan (1) Pneumonia of left upper lobe due to infectious organism: Plan: CT chest concern pneumonia Started on ertapenem given penicillin allergies given vancomycin in ED, MRSA swab negative, discontinued Guaifenesin extended release 1200 mg p.o. twice daily BioFire negative PRN tylenol for fever/pain PRN zofran for nausea -neutropenic precautions (2) Immunocompromised: Plan: Non-Hodgkin's lymphoma completed chemotherapy above as noted Presently undergoing immunotherapy every 3 weeks with Lunsumio, with next treatment 02/21/2024 Bactrim was placed temporarily on hold by oncology in [place], levofloxacin on hold Follows Dr. Parks at [facility], unable to contact on weekends, may need to check on weekday to confirm prophylactic antibiotics Patient on acyclovir 400mg BID per external records, resumed in hospital Continue folic acid, vitamin B12, vitamin D3 and aspirin (3) Non-Hodgkin lymphoma: Admission and Anticipated Discharge Date Admission Date: February 11, 2024 Supervising Physician Co-Signing Physician Notes I personally examined the patient and verified valladares points of history and exam, discussed case, and agree with decision making and plan documented by Dr. Yoon. Patient currently on admission for left upper lobe pneumonia in setting of NHL, current immunotherapy, and leukopenia. Patient reports chills and fevers. She remains on ertapenem IV and acyclovir prophylaxis. Subjective Patient seen at bedside, calm comfortable cooperative. Feels improvement compared to yesterday no longer having fevers breathing easier today. Patient denies nausea SOB. Still having some chills and discomfort with deep breathing. Patient follows Dr. Parks Oncologist at [facility]. She is chronically on acyclovir 400mg BID. Was recently switched to immunotherapy lunsumio q3wks, last dose 1 week ago. No concerns at this time. Physical Exam Constitutional: WD/WN, vitals as above Eyes: PERRL, conjunctivae normal, anicteric sclerae ENMT: external ear and nose normal, oropharynx normal Respiratory: normal respiratory effort, lungs clear to auscultation Cardiovascular: RRR, no murmur, no edema Skin: no rashes, warm and dry Results & Data Results & Data Vital Signs (Past 12 Hours) Vital Signs Temp Pulse Pulse Resp BP BP Pulse Ox 02/11/24 05:44 36.5 C 90 16 112/71 99 03/23/24 04:56 81 17 135/94 97 02/11/24 03:50 86 02/11/24 03:20 87 18 128/86 99 02/11/24 01:37 36.5 C 108 H 18 126/79 96 02/10/24 23:26 120 H 02/10/24 23:06 39.1 C H 126 H 18 150/83 H 98 O2 Del Method 02/11/24 05:44 Room Air 02/11/24 04:56 Room Air 02/11/24 03:50 02/11/24 03:20 Room Air 02/11/24 01:37 Room Air 02/10/24 23:26 02/10/24 23:06 Room Air Resident Activity Tracking Resident Involvement: Resident Care Provided Care Provided: Adult Hospital Medicine
--- NOTE | 2024-02-11 07:53 | XRay Report ---
XR chest 1V portable CLINICAL HISTORY: Sepsis COMPARISON STUDY: PET/CT November 17, 2022. Chest radiograph September 07, 2022. FINDINGS: There is no pneumothorax or pleural effusion. Pulmonary vascularity is normal. Band-like le ft upper lobe airspace opacity is present. Cardiomediastinal silhouette is unremarkable. IMPRESSION: Left upper lobe airspace opacity suggestive of pneumonia. Post treatment radiographs to ensure resolution are recommended. ACT 112: Negative or not required by law. Electronically signed by: Roger Chang M.D. 02/11/2024 7:52 AM
[2024-02-11] MEDS: ALBUT/IPRATROP 3MG/0.5MG NEB 3 ML VIAL NEB SCH (08:16)
[2024-02-11] MEDS: CHOLECALCIFEROL 25 MCG (1000 UNITS) TAB PO SCH (08:36)
[2024-02-11] MEDS: MULTIVITAMIN TAB PO SCH (08:36)
[2024-02-11] MEDS: CYANOCOBALAMIN (B-12) 500 MCG TABLET PO SCH (08:37)
[2024-02-11] MEDS: FOLIC ACID 1 MG TAB PO SCH (08:38)
[2024-02-11] MEDS: guaiFENesin 600 MG TABCR PO SCH (08:39)
[2024-02-11] MEDS: ENOXAPARIN INJ 40 MG/0.4 ML SYR SQ SCH (08:39)
[2024-02-11] MEDS ORDERED: PNEUMOCOCCAL VACCINE (PCV20) 20-VAL CONJ-DIP CRM/PF 0.5 ML SYR IM ONE (09:00)
--- NOTE | 2024-02-11 09:01 | Electrocardiogram Report ---
Test Reason : Blood Pressure : / mmHG Vent. Rate : 119 BPM Atrial Rate : 119 BPM P-R Int : 164 ms QRS Dur : 086 ms QT Int : 300 ms P-R-T Axes : 068 -33 052 degrees QTc Int : 422 ms Sinus tachycardia Left anterior fascicular block Incomplete right bundle branch block Low voltage QRS Poor R wave progression, consider anterior SC vs. lead placement vs. LVH Abnormal ECG When compared with ECG of 25-OCT-2008 21:43, QRS axis Shifted left PRWP now present Confirmed by Patrice Velasquez ([id number]) on 02/11/2024 9:00:58 AM Referred By: REFERRED SELF Confirmed By:Patrice Velasquez
--- OUTSIDE RECORDS SUMMARY | 2024-02-11 12:07 | External Medical Summary | Summary of Care ---
Author Name Unknown Organization [facility] Address [address] [place] [address] Phone [phone] Care Team Providers Care Drawer Maker Name Role Phone ElidiaRonaldo gaviria Primary Care Provider Reason for Visit * Reason Comments Follow Up Patient here for tomasz luation of 2 cysts on her scalp that have been getting bigger, one of them painful. Encounter Details Date Type Department Care Team (Late st Contact Info) Description 11/09/2023 8:30 AM EST Office Visit Dermatology [facility] [address] [facility] [place] [address] Inez Ruby MD [address] [facility] [place] [address] Pilar cyst*; Encounter for therapeutic drug monitoring; Nail dystrophy Allergies Active Allergy Reactions Criticality Noted Date Comments Penicillins 10/11/2007 Anaphylaxis documented as of this encounter (statuses as of 11/09/2023) Medications Medication Sig Dispensed Refills Start Date End Date Status MIRENA 20 MCG/24HR IU IUD None Entered 0 Active Terbinafine HCl 250 MG Oral Tablet (Lamisil)Indications:Na il dystrophy 1 tablet daily 45 Tablet 1 11/09/2023 Active documented as of this encounter (statuses as of 11/09/2023) Active Problems Problem Noted Date Diagnosed Date Follicular lymphoma grade IIIa 08/03/2019 Parotid neoplasm 10/20/2018 Presence of intrauterine contraceptive device ADVANCE DIRECTIVE INFORMATION 09/19/2008 Overview: No, Advance Directive brochure offered , patient declined. documented as of this encounter (statuses as of 11/09/2023) Resolved Problems Problem Noted Date Diagnosed Date Resolved Date Early onset of delivery, del ivered, with or without mention of antepartum condition 10/18/2008 01/21/2021 delivery delivered 10/18/2008 01/21/2021 Overview: ICD-10 update of inactive term Carrier or suspected carrier of group B Streptococcus 09/23/2008 10/18/2008 Overview: GBS positive. TREAT IN LABOR. Sensitive to vanco, erythro, and clinda. INFORMATION-OB complications 08/07/2008 10/18/2008 Overview: At 30w GA, fetus breech - VERTEX at 34 wks Action/Plan/Outcome: Pt desires at [place] if fetus does not remain breech. Scan at 34 wk showed Vertex. Consult done in [place]. Patient plans to attempt if she goes into spontaneous labor. Otherwise, will do repeat LTCS locally. Encounter for supervision of other normal 03/19/2008 05/06/2009 Overview: ICD-10 update of inactive term Previous delivery, antepartum condition or complication 03/19/2008 10/18/2008 Overview: Hx of low transverse C/S due to failure to progress Action/Plan/Outcome: Considering at [place]. H/O PIH 03/19/2008 10/18/2008 Overview: Hx of elevated BP last preg, no preclampsia Action/Plan/Outcome: Baseline 24hr urine pr = 75 mg documented as of this encounter (statuses as of 11/09/2023) Immunizations Name Administration Dates Next Due Seasonal Influenza, PF, 6 M & above, IM , (FluLaval or Fluzone) 08/06/2023 Seasonal Influenza, Split, IIV3, With Preserve, Inj 10/02/2008 documented as of this encounter Social History Tobacco Use Types Packs/Day Years Used Date Smoking Tobacco: Never Smokeless Tobacco: Never Alcohol Use Standard Drinks/Week Comments Yes 0 (1 standard drink = 0.6 oz pur e alcohol) ocas Sex and Gender Information Value Date Recorded Sex Assigned at Female 08/11/2022 8:05 PM EDT Gender Identity Female 08/11/2022 8:05 PM EDT Sexual Orientation Straight 08/11/2022 8: 05 PM EDT Job Start Date Occupation Industry Not on file Not on file Not on file documented as of this encounter Progress Notes * Inez Ruby MD - 11/09/2023 8:38 AM EST SUBJECTIVE: History of Present Illness: Gladis Bynum is a 47 year old female seen today for follow up of several issues. Date Last Appointment: 10/27/2022 (in office), Visit date not found (telemedicine) Spots on scalp x years, pt would like removal L foot nail 'infx' recurrent over the years REVIEW OF SYSTEMS: SKIN: No other new or changing moles. HEME/LYMPH: No new or enlarging lumps or bumps. MEDICA TIONS: Current Outpatient Medications Medication Sig Dispense Refill MIRENA 20 MCG/24HR IU IUD None Entered No current facility-administered medications for this visit. ALLERG IES: Pcn [penicillins] OBJECTIVE: GEN: Healthy, alert, no distress, appears oriented, pleasant, and cooperative. SKIN: Detailed exam of hair, face including lids and lips, neck, palpation of scalp, and left foot completed and are normal except: 1. R crown - dermal papules (9 mm and 3 mm) 2. L lateral great toenail - distal onycholysis and opacity ASSESS MENT/PLAN: 1. Pilar cysts - benign, pt would like removal, will schedule excision, pt aware of risks/benefits 2. Onychomycosis, pt would prefer oral therapy, understands natural history, start terbinafine 250 mg daily 6 weeks, then labs, then repeat 6 weeks if stable Discussed sun protection with patient including proper use of sunscreens and protective clothing. Follow-up: pt will call, excision as above There were no barriers tolearning and no other pain was related to today's visit. The patient and/or person accompanying patient demonstrates understanding of the visit and treatment. Inez Ruby MD 11/09/2023 8:38 AM documented in this encounter Nursing Notes * Ele Rey LPN - 11/09/2023 8:22 AM EST Patient identified by name and date of . Do you have any concerns about pain management for today's visit? No Living Will or Advance Directive for Health Care as noted on problem list. [employer] is a way you can talk to your provider online through e-mail. Would you like to sign up? I can activate it for you? ALREADY ACTIVE Chief Complaint Patient presents with Follow Up Patient here for evaluation of 2 cysts on her scalp that have been getting bigger, one of them painful. documented in this encounter Plan of Treatment Upcoming Encounters Date Type Department Care Team (Late st Contact Info) Description 12/13/2023 3:00 PM EST Office Visit Dermatology [facility] [address] [facility] [place] [address] Marshall Jaimes MD [address] [facility] [place] [address] Sp, [facility] [address] Scheduled Orders Name Type Priority Associated Diagnoses Orde r Schedule CBC WITH WBC DIFFERENTIAL Lab Routine Encounter for therapeutic drug monitoring Expected: 11/09/2023, Expires: 11/09/2024 HEPATIC FUNCTION PANEL Lab Routine Encounter for therapeutic drug monitoring Expected: 11/09/2023, Expires: 11/09/2024 Health Maintenance Due Date Last Done Comments Hepatitis B (1 of 3 - 3-dose series) 1976 Lipid Panel 1976 COVID-19 Vaccine (#1) 1981 Pneumococcal Vaccine: Pediatrics (0 to 5 Years) and At-Risk Patients (6 to 64 Years) (1 - PCV) 1982 Depression Screening 1988 HIV Screening 1991 Hepatitis C Screening 1994 DTaP,Tdap,and Td Vaccines (1 - Tdap) 1995 HPV/Co-Test 2006 Cologuard 2021 Colonoscopy 2021 Colorectal Cancer Screening 2021 Fecal Occult Blood Test 2021 Sigmoidoscopy 2021 Cervical Cancer Screening 01/22/2024 Pap Smear 01/22/2024 01/21/2021, 1101/2017, 11/01/2013, Additional history exists Mammogram 02/01/2024 01/31/2023, 05/2022, 01/23/2021, Additional history exists IUD 7-Year 07/20/2026 07/20/2019 Influenza Vaccine (FLU shot) Completed , 10/21/2022, 09/02/2021, Additional history exists GARDASIL-HPV IMMUNIZATION SERIES Aged Out No longer eligible based on patient's age to complete this topic MENINGOCOCCAL (MENACTRA/MENVEO) Aged Out No longer eligible based on patient's age to complete this topic documented as of this encounter Medical Devices Not on filedocumented as of this encounter Visit Diagnoses Diagnosis Pilar cyst- Primary Encounter for therapeutic drug monitoring Nail dystrophy Other specified disease of nail documented in this encounter Advance Directives Latest Code Status on File Code Status Date Activated Date Inactivated Comments Full Code 10/18/2008 4:02 AM 10/20/2008 7:44 PM Care Teams Drawer Maker Relationship Specialty Start Date End Date Ronaldo Brenner DO [address] [place] [address] PCP - General Family Medicine 07/08/17 documented as of this encounter
--- OUTSIDE RECORDS SUMMARY | 2024-02-11 12:07 | External Medical Summary | Summary of Care ---
Author Name Unknown Organization [facility] Address [address] [place] [address] Phone [phone] Care Team Providers Care Medical Reviewer Name Role Phone ElidiaRayRonaldocirilo West Primary Care Provider Encounter Details Date Type Department Care Team (Late st Contact Info) Description 01/27/2024 Refill Dermatology [facility] [address] [facility] [place] [address] Marshall Jaimes MD [address] [facility] [address] Nail dystrophy Allergies Active Allergy Reactions Criticality Noted Date Comments Penicillins 10/11/2007 Anaphylaxis documented as of this encounter (statuses as of 01/27/2024) Medications Medication Sig Dispensed Refills Start Date End Date Status MIRENA 20 MCG/24HR IU IUD None Entered 0 Active Acyclovir 200 MG Oral Capsule (Zovirax) Take by mouth 5 times a day. 0 Active Sulfamethoxazole- Trimethoprim 800-160 MG Oral Tablet (Bactrim DS) Take 1 Tablet by mouth in the morning and 1 Tablet before bedtime. 0 Active Lunsumio 1 MG/ML Intravenous Solution (Mosunetuzumab-ax gb) Administer intravenously. 0 Active Terbinafine HCl 250 MG Oral Tablet (Lamisil)Indicati ons:Nail dystrophy 1 tablet daily 45 Tablet 1 01/27/2024 Active Terbinafine HCl 250 MG Oral Tablet (Lamisil)Indicati ons:Nail dystrophy 1 tablet daily 45 Tablet 1 11/09/2023 01/27/2024 Discontinue d(Refill) documented as of this encounter (statuses as of 01/27/2024) Active Problems Problem Noted Date Diagnosed Date Follicular lymphoma grade IIIa 08/03/2019 Parotid neoplasm 10/20/2018 Presence of intrauterine contraceptive device ADVANCE DIRECTIVE INFORMATION 09/19/2008 Overview: No, Advance Directive brochure offered , patient declined. documented as of this encounter (statuses as of 01/27/2024) Resolved Problems Problem Noted Date Diagnosed Date [...] at 34 wks Action/Plan/Outcome: Pt desires at [place] if fetus does not remain breech. Scan at 34 wk showed Vertex. Consult done in [place]. Patient plans to attempt if she goes into spontaneous labor. Otherwise, will do repeat LTCS locally. Encounter for supervision of other normal 03/19/2008 05/06/2009 Overview: ICD-10 update of inactive term Previous delivery, antepartum condition or complication 03/19/2008 10/18/2008 Overview: Hx of low transverse C/S due to failure to progress Action/Plan/Outcome: Considering at [place]. H/O PIH 03/19/2008 10/18/2008 Overview: Hx of elevated BP last preg, no preclampsia Action/Plan/Outcome: Baseline 24hr urine pr = 75 mg documented as of this encounter (statuses as of 01/27/2024) Immunizations Name Administration Dates Next Due Seasonal [...] on file documented as of this encounter Miscellaneous Notes * Telephone Encounter - Marshall Jaimes MD - 01/27/2024 12:09 PM EST Signed Prescriptions: Disp Refills Terbinafine HCl 250 MG Oral Tablet (Lamisi*45 Tab*1 Si tablet dailyAuthorizing Provider: MARSHALL JAIMES documented in this encounter Plan of Treatment Upcoming Encounters Date Type Department Care Team (Late st Contact Info) Description 02/20/2024 3:00 PM EDT Imaging Radiology [facility] [address] [facility] [address] [place] [address] 02/20/2024 3:30 PM EDT Office Visit Gynecology/Obstetrics [facility] [address] [place] [address] Stephanie Joshua PA-C [address] [place] [address] Health Maintenance Due Date Last Done Comments Lipid Panel 1976 Pneumococcal Vaccine: Pediatrics (0 to 5 Years) and At-Risk Patients (6 to 64 Years) (1 of 2 - PCV) 1982 Depression Screening 1988 Hepatitis C Screening 1994 DTaP,Tdap,and Td Vaccines (1 - Tdap) 1995 Hepatitis B (1 of 3 - 19+ 3-dose series) 1995 HPV/Co-Test 2006 Cologuard 2021 Colonoscopy 2021 Colorectal Cancer Screening 2021 Fecal Occult Blood Test 2021 Sigmoidoscopy 2021 COVID-19 Vaccine ( season) 2023 09/02/2022, 09/11/2021, 01/23/2021, Additional history exists Cervical Cancer Screening 01/22/2024 Pap Smear 01/22/2024 01/21/2021, 11/0 01/2017, 11/01/2013, Additional history exists Mammogram 02/01/2024 01/31/2023, 030 05/2022, 01/23/2021, Additional history exists IUD 7-Year 07/20/2026 07/20/2019 Influenza Vaccine (FLU shot) Completed , 08/06/2023, 10/21/2022, Additional history exists HIV Screening Completed 12/06/2023 GARDASIL-HPV IMMUNIZATION SERIES Aged Out No longer eligible based on patient's age to complete this topic MENINGOCOCCAL (MENACTRA/MENVEO) Aged Out No longer eligible based on patient's age to complete this topic documented as of this encounter Medical Devices Not on filedocumented as of this encounter Visit Diagnoses Diagnosis Nail dystrophy Other specified disease of nail documented in this encounter Advance Directives Latest Code Status on File Code Status Date Activated Date Inactivated Comments Full Code 10/18/2008 4:02 AM 10/20/2008 7:44 PM Care Teams Medical Reviewer Relationship Specialty Start Date End Date Ronaldo Brenner DO [address] [place] [address] PCP - General Family Medicine 07/08/17 documented as of this encounter
--- OUTSIDE RECORDS SUMMARY | 2024-02-11 12:07 | External Medical Summary | Summary of Care ---
Author Name Unknown Organization [facility] Address [address] [facility] [place] [address] Phone [phone] Care Team Providers Care Instrumentation Manager Name Role Phone Ronaldo Brennerger Primary Care Provider Reason for Visit * Reason Onset Date Comments Order Request 02/09/2024 Annual mammogram Encounter Details Date Type Department Care Team (Late st Contact Info) Description 02/09/2024 Telephone Gynecology/Obstetrics [facility] [address] [place] [address] Stephanie Joshua PA-C [address] [place] [address] Order Request (Annual mammogram) Allergies Active Allergy Reactions Criticality Noted Date Comments Penicillins 10/11/2007 Anaphylaxis documented as of this encounter (statuses as of 02/09/2024) Medications Medication Sig Dispensed Refills Start Date End Date Status MIRENA 20 MCG/24HR IU IUD None Entered 0 Active Acyclovir 200 MG Oral Capsule (Zovirax) Take by mouth 5 times a day. 0 Active Sulfamethoxazole-Tri methoprim 800-160 MG Oral Tablet (Bactrim DS) Take 1 Tablet by mouth in the morning and 1 Tablet before bedtime. 0 Active Lunsumio 1 MG/ML Intravenous Solution (Mosunetuzumab-axgb) Administer intravenously. 0 Active Terbinafine HCl 250 MG Oral Tablet (Lamisil)Indications :Nail dystrophy 1 tablet daily 45 Tablet 1 01/27/2024 Active documented as of this encounter (statuses as of 02/09/2024) Active Problems Problem Noted Date Diagnosed Date Follicular lymphoma grade IIIa 08/03/2019 Parotid neoplasm 10/20/2018 Presence of intrauterine contraceptive device ADVANCE DIRECTIVE INFORMATION 09/19/2008 Overview: No, Advance Directive brochure offered , patient declined. documented as of this encounter (statuses as of 02/09/2024) Resolved Problems Problem Noted Date Diagnosed Date [...] at 34 wks Action/Plan/Outcome: Pt desires at [place] if fetus does not remain breech. Scan at 34 wk showed Vertex. Consult done in [place]. Patient plans to attempt if she goes into spontaneous labor. Otherwise, will do repeat LTCS locally. Encounter for supervision of other normal 03/19/2008 05/06/2009 Overview: ICD-10 update of inactive term Previous delivery, antepartum condition or complication 03/19/2008 10/18/2008 Overview: Hx of low transverse C/S due to failure to progress Action/Plan/Outcome: Considering at [place]. H/O PIH 03/19/2008 10/18/2008 Overview: Hx of elevated BP last preg, no preclampsia Action/Plan/Outcome: Baseline 24hr urine pr = 75 mg documented as of this encounter (statuses as of 02/09/2024) Immunizations Name Administration Dates Next Due Seasonal [...] encounter Miscellaneous Notes * Telephone Encounter - Joana Malave OSA - 02/09/2024 4:01 PM EDT Patient is scheduled 02/19 for a screening mammogram and annual [employer] visit. Please review and place mammogram order if accepatable. Thank you documented in this encounter Plan of Treatment Upcoming Encounters Date Type Department Care Team (Late st Contact Info) Description 02/20/2024 3:00 PM EDT Imaging Radiology [facility] 1st [facility] [address] [address] 02/20/2024 3:30 PM EDT Office Visit Gynecology/Obstetrics [facility] [address] [place] [address] Stephanie Joshua PA-C [address] [facility] [place] [address] Health Maintenance Due Date Last Done Comments [...] Not on filedocumented as of this encounter Advance Directives Latest Code Status on File Code Status Date Activated Date Inactivated Comments Full Code 10/18/2008 4:02 AM 10/20/2008 7:44 PM Care Teams Instrumentation Manager Relationship Specialty Start Date End Date Ronaldo Brenner DO [address] [place] [address] PCP - General Family Medicine 07/08/17 documented as of this encounter
--- OUTSIDE RECORDS SUMMARY | 2024-02-11 12:07 | External Medical Summary | Summary of Care ---
Author Name Unknown Organization [facility] Address [address] [place] [address] Phone [phone] Care Team Providers Care Senior Fund Accountant Name Role Phone Elidia Ronaldocirilo West Primary Care Provider Reason for Visit * Reason Comments Follow Up Excision of two pila r cysts Encounter Details Date Type Department Care Team (Late st Contact Info) Description 01/24/2024 2:15 PM EST Office Visit Dermatology [facility] [place] [address] [facility] [place] [address] Marshall Jaimes MD [address] [facility] [place] [address] Sp, Mg Rm Derm [address] [facility] [place] [address] Pilar cyst* Allergies Active Allergy Reactions Criticality Noted Date Comments Penicillins 10/11/2007 Anaphylaxis documented as of this encounter (statuses as of 01/24/2024) Medications Medication Sig Dispensed Refills Start Date End Date Status MIRENA 20 MCG/24HR IU IUD None Entered 0 Active Terbinafine HCl 250 MG Oral Tablet (Lamisil)Indications :Nail dystrophy 1 tablet daily 45 Tablet 1 11/09/2023 Active Acyclovir 200 MG Oral Capsule (Zovirax) Take by mouth 5 times a day. 0 Active Sulfamethoxazole-Tri methoprim 800-160 MG Oral Tablet (Bactrim DS) Take 1 Tablet by mouth in the morning and 1 Tablet before bedtime. 0 Active Lunsumio 1 MG/ML Intravenous Solution (Mosunetuzumab-axgb) Administer intravenously. 0 Active documented as of this encounter (statuses as of 01/24/2024) Active Problems Problem Noted Date Diagnosed Date Follicular lymphoma grade IIIa 08/03/2019 Parotid neoplasm 10/20/2018 Presence of intrauterine contraceptive device ADVANCE DIRECTIVE INFORMATION 09/19/2008 Overview: No, Advance Directive brochure offered , patient declined. documented as of this encounter (statuses as of 01/24/2024) Resolved Problems Problem Noted Date Diagnosed Date [...] at 34 wks Action/Plan/Outcome: Pt desires at [place] if fetus does not remain breech. Scan at 34 wk showed Vertex. Consult done in [place]. Patient plans to attempt if she goes into spontaneous labor. Otherwise, will do repeat LTCS locally. Encounter for supervision of other normal 03/19/2008 05/06/2009 Overview: ICD-10 update of inactive term Previous delivery, antepartum condition or complication 03/19/2008 10/18/2008 Overview: Hx of low transverse C/S due to failure to progress Action/Plan/Outcome: Considering at [place]. H/O PIH 03/19/2008 10/18/2008 Overview: Hx of elevated BP last preg, no preclampsia Action/Plan/Outcome: Baseline 24hr urine pr = 75 mg documented as of this encounter (statuses as of 01/24/2024) Immunizations Name Administration Dates Next Due Seasonal [...] as of this encounter Progress Notes * Marshall Jaimes MD - 01/24/2024 2:13 PM EST SUBJECTIVE: HPI: Gladis Bynum is a 48 year old female who presents today for elective excision of 2 pilar cysts. Bothersome, requesting removal. Has had this done before ALLERG Y: Pcn [penicillins] OBJECT RAJESH: General: Patient is alert and oriented and in no apparent distress. Skin: Examination of scalp reveals: A. Right vertex scalp - 1cm firm mobile subcutaneous nodule- pilar B. Left parietal scalp - 2cm firm mobile subcutaneous nodule with small adjoined cyst - pilars ASSESS MENT / PLAN: 1. Pilar cysts x2 -For elective excision today. -For details refer to Operative Note below. OPERATIVE NOTE / PROCEDURE NOTE Patient identy verified by name and date of . The procedure, risks, benefits, alternatives andexpected outcomes were discussed with the patient. Risks including but not limited to scarring, bleeding, and infection were discussed. The patient was also informed that the scar may spread or thicken. Written consent obtained. The lesions were identified and marked with a surgical marking pen. Alinear incision was drawn with a marking pen on both lesions. The area was cleaned with alcohol andinfiltrated with approx 6 mL of lidocaine 0.5% with epinephrine at a concentration of 1:200,000. The area was then cleaned with chlorhexidine and was draped in sterile manner. Time out called. Patient identified, procedure verified, site identified and verified. Patient and staff present in agreement. x2 linear incisions were performed and subcutaneous blunt dissection was carried out. The specimens were submitted for pathologic evaluation. Hemostasis was acheived with electrocautery. After final inspection of the wound for hemostasis, closure was performed with deep interrupted mattress sutures using 4.0 vicryl . Superficial sutures of 5.0 vicryl rapide were placed with a final closure length of 1cm and 2 cm respectively. This was followed by a sterile dressing of white petrolatum ointment and Telfa Pad. Size of lesion A: 1cm Size of lesion B: 2cm Size of margins: 0cm Total excised diameter A: 1cm Total excised diameter B: 2cm Length of repair A: 1cm Length of repair B: 2cm Total length of repair: 3cm -Acetominophen 500mg PO every 6 hours as needed for pain. -Verbal and written wound care instructions provided. -Pt tolerated the procedure well and was discharged to home under the care of self. -Follow-up: PRN The patient was encouraged to contact me with any further questions or concerns. Mrashall Jaimes MD 01/24/2024 2:13 PM documented in this encounter Nursing Notes * Mayi Sheehan LPN - 01/24/2024 2:06 PM EST Patient identified by name and date of . Do you have any concerns about pain management for today's visit? No Living Will or Advance Directive for Health Care as noted on problem list. [employer] is a way you can talk to your provider online through e-mail. Would you like to sign up? I can activate it for you? ALREADY ACTIVE Chief Complaint Patient presents with Follow Up Excision of two pilar cysts documented in this encounter Plan of Treatment Upcoming Encounters Date Type Department Care Team (Late st Contact Info) Description 02/20/2024 3:00 PM EDT Imaging Radiology [facility] [address] [facility] [address] [place] [address] 02/20/2024 3:30 PM EDT Office Visit Gynecology/Obstetrics [facility] [address] [place] [address] Stephanie Joshua PA-C [address] [place] [address] Pending Results Name Type Priority Associated Diagnoses Date /Time SURGICAL PATHOLOGY Pathology Routine Pilar cyst 01/24/2024 3:00 PM EST Health Maintenance Due Date Last Done Comments [...] encounter Visit Diagnoses Diagnosis Pilar cyst- Primary documented in this encounter Advance Directives Latest Code Status on File Code Status Date Activated Date Inactivated Comments Full Code 10/18/2008 4:02 AM 10/20/2008 7:44 PM Care Teams Senior Fund Accountant Relationship Specialty Start Date End Date Ronaldo Brenner DO [address] [place] [address] PCP - General Family Medicine 07/08/17 documented as of this encounter
--- OUTSIDE RECORDS SUMMARY | 2024-02-11 12:07 | External Medical Summary | Summary of Care ---
Author Name Unknown Organization [facility] Address [address] [place] [address] Phone [phone] Care Team Providers Care Reading Tutor Name Role Phone ElidiaRonaldo gaviria Primary Care Provider Reason for Visit * Reason Comments Follow Up Patient here for tomasz luation of 2 cysts on her scalp that have been getting bigger, one of them painful. Encounter Details Date Type Department Care Team (Late st Contact Info) Description 11/09/2023 8:30 AM EST Office Visit Dermatology [facility] [address] [place] [address] Inez Ruby MD [address] [place] [address] Pilar cyst*; Encounter for therapeutic drug monitoring; [...] at 34 wks Action/Plan/Outcome: Pt desires at [place] if fetus does not remain breech. Scan at 34 wk showed Vertex. Consult done in [place]. Patient plans to attempt if she goes into spontaneous labor. Otherwise, will do repeat LTCS locally. Encounter for supervision of other normal 03/19/2008 05/06/2009 Overview: ICD-10 update of inactive term Previous delivery, antepartum condition or complication 03/19/2008 10/18/2008 Overview: Hx of low transverse C/S due to failure to progress Action/Plan/Outcome: Considering at [place]. H/O PIH 03/19/2008 10/18/2008 Overview: Hx of [...] Health Care as noted on problem list. [facility] is a way you can talk to [...] 12/13/2023 3:00 PM EST Office Visit Dermatology [facility] [address] [facility] [place] [address] Marshall Jaimes MD [address] [place] [address] Sp, [facility] [address] [address] Scheduled Orders Name Type Priority Associated Diagnoses [...] 4:02 AM 10/20/2008 7:44 PM Care Teams Reading Tutor Relationship Specialty Start Date End Date Ronaldo Brenner DO [address] [place] [address] PCP - General Family Medicine 07/08/17 documented as of this encounter
--- OUTSIDE RECORDS SUMMARY | 2024-02-11 12:07 | External Medical Summary | Summary of Care ---
Author Name Unknown Organization [facility] Address [address] [facility] [place] [address] Phone [phone] Care Team Providers Care Lease Attendant Name Role Phone Ronaldo Brennerger Primary Care Provider Reason for Visit * Reason Onset Date Comments Order Request 02/09/2024 Annual mammogram Encounter Details Date Type Department Care Team (Late st Contact Info) Description 02/09/2024 Telephone Gynecology/Obstetrics [facility] [address] [place] [address] Stephanie Joshua PA-C [address] [place] [address] Order Request (Annual mammogram) Allergies Active Allergy [...] at 34 wks Action/Plan/Outcome: Pt desires at [place] if fetus does not remain breech. Scan at 34 wk showed Vertex. Consult done in [place]. Patient plans to attempt if she goes into spontaneous labor. Otherwise, will do repeat LTCS locally. Encounter for supervision of other normal 03/19/2008 05/06/2009 Overview: ICD-10 update of inactive term Previous delivery, antepartum condition or complication 03/19/2008 10/18/2008 Overview: Hx of low transverse C/S due to failure to progress Action/Plan/Outcome: Considering at [place]. H/O PIH 03/19/2008 10/18/2008 Overview: Hx of [...] 02/19 for a screening mammogram and annual [facility] visit. Please review and place mammogram order if accepatable. Thank you documented in this encounter Plan of Treatment Upcoming Encounters Date Type Department Care Team (Late st Contact Info) Description 02/20/2024 3:00 PM EDT Imaging Radiology [facility] [address] [place] [address] 02/20/2024 3:30 PM EDT Office Visit Gynecology/Obstetrics [facility] [address] [place] [address] Stephanie Joshua PA-C [address] [facility] [place] [address] Health Maintenance Due Date Last Done Comments [...] 4:02 AM 10/20/2008 7:44 PM Care Teams Lease Attendant Relationship Specialty Start Date End Date Ronaldo Brenner DO [address] [place] [address] PCP - General Family Medicine 07/08/17 documented as of this encounter
[2024-02-11] MEDS ORDERED: VANCOMYCIN HCL 1,500 MG in SODIUM CHLORIDE 0.9% 500 ML IV SCH (16:00)
[2024-02-11] MEDS: ACETAMINOPHEN 325 MG TAB PO PRN (20:05)
[2024-02-11] MEDS: ASPIRIN 81 MG ECTAB PO SCH (20:06)
[2024-02-11] MEDS: ACYCLOVIR 400 MG TAB PO SCH (20:06)
[2024-02-12] MEDS: ERTAPENEM SODIUM 1,000 MG in SYRINGE 0 ML IV SCH (05:06)
--- NOTE | 2024-02-12 07:21 | Hospitalist Progress Note ---
Date of Service February 12, 2024 Assessment & Plan (1) Pneumonia of left upper lobe due to infectious organism: Plan: CT chest concern pneumonia Started on ertapenem given penicillin allergies, consider downgrading to cefdinir tomorrow given vancomycin in ED, MRSA swab negative, discontinued Guaifenesin extended release 1200 mg p.o. twice daily BioFire negative PRN tylenol for fever/pain PRN zofran for nausea PRN albuterol for SOB -neutropenic precautions (2) Immunocompromised: Plan: Non-Hodgkin's lymphoma completed chemotherapy above as noted Presently undergoing immunotherapy every 3 weeks with Lunsumio, with next treatment 02/21/2024 Bactrim was placed temporarily on hold by oncology in [place], levofloxacin on hold Follows Dr. Parks at [facility], unable to contact on weekends, may need to check on weekday to confirm prophylactic antibiotics Patient on acyclovir 400mg BID per external records, resumed in hospital Continue folic acid, vitamin B12, vitamin D3 and aspirin (3) Non-Hodgkin lymphoma: Admission and Anticipated Discharge Date Admission Date: February 11, 2024 Supervising Physician Co-Signing Physician Notes I personally examined the patient and verified valladares points of history and exam, discussed case, and agree with decision making and plan documented by Dr. Yoon. Patient with symptomatic improvement today. She denies chills, cough, shortness of breath, chest pain, wheezing, and N/V/D today. She remains on ertapenem IV and acyclovir prophylaxis for treatment of left upper lobe pneumonia in setting of NHL with current immunotherapy and leukopenia. Anticipate transition to oral antibiotics tomorrow if patient continues to improve clinically. Recommend confirmation with patient's oncologist Dr. Parks and [facility] in regards to prophylactic antibiotics for discharge needs following resolution of pneumonia (patient previously on Bactrim which was switched to levofloxacin prior to admission). Recommend follow-up chest x-ray to ensure resolution. Subjective Patient seen at bedside, calm comfortable cooperative. No fevers SOB, does feel she can take a deeper breath on the albuterol. Looking forward to discharge. Physical Exam Constitutional: WD/WN, vitals as above Eyes: PERRL, conjunctivae normal, anicteric sclerae ENMT: external ear and nose normal, oropharynx normal Respiratory: normal respiratory effort, lungs clear to auscultation Cardiovascular: RRR, no murmur, no edema Skin: no rashes, warm and dry Results & Data Results & Data Vital Signs (Past 12 Hours) Vital Signs Temp Pulse Resp BP BP Pulse Ox O2 Del Method 02/12/24 07:18 90 16 98 Room Air 02/12/24 03:17 36.6 C 79 16 96/67 L 99 Room Air 02/12/24 00:49 36.4 C L 83 18 93/57 L 97 Room Air 02/11/24 19:58 38.0 C H 136 H 18 108/72 96 Room Air Resident Activity Tracking Resident Involvement: Resident Care Provided Care Provided: Adult Hospital Medicine
[2024-02-12 07:28] LABS: Basophils # (auto) 0.01 K/uL (0.00-0.20); Basophils % (auto) 0.4 %; Eosinophils # (auto) 0.25 K/uL (0.00-0.50); Eosinophils % (auto) 8.9 %; Hematocrit (blood only) 34.2 % (37.0-47.0); Hemoglobin 11.1 g/dl (12.0-16.0); Immature Granulocytes # (auto) 0.02 K/uL (0.01-0.20); Immature Granulocytes % (auto) 0.7 %; Lymphocytes # (auto) 0.35 K/uL (1.20-3.40); Lymphocytes % (auto) 12.5 %; Mean Corpuscular Hemoglobin 27.7 pg (25.0-34.0); Mean Corpuscular Hgb Conc 32.5 g/dL (32.0-36.0); Mean Corpuscular Volume 85.3 fL (80.0-100.0); Mean Platelet Volume 9.8 fL (9.4-12.4); Monocytes # (auto) 0.49 K/uL (0.11-0.59); Monocytes % (auto) 17.5 %; Neutrophils # (auto) 1.68 K/uL (1.40-6.50); Platelet Count 209 K/uL (130-400); RDW Coefficient of Variation 15.1 % (11.5-14.5); RDW Standard Deviation 46.8 fL (36.4-46.3); Red Blood Count 4.01 M/uL (4.20-5.40)
[2024-02-12 07:44] LABS: Albumin Globulin Ratio 1.3 (0.9-2); Albumin Level 3.5 gm/dl (3.4-5.0); BUN Creatinine Ratio 8.8 (10-20); Bilirubin,Total 0.3 mg/dl (0.2-1.0); Calcium 8.3 mg/dl (8.6-10.3); Creatinine Clr Calc Pharmacy 142.6 ml/min; Est GFR (African American) 127.9 ml/min; Est GFR (Non-African American) 110.4 ml/min; Globulin 2.8 gm/dl (2.5-4.0); Magnesium 1.9 mg/dl (1.7-2.4); Potassium 3.4 mmol/L (3.5-5.1); Total Protein 6.3 gm/dl (6.0-8.3)
[2024-02-12] MEDS ORDERED: Nursing to Pharmacy Communication SCH ×2 (20:30)
[2024-02-13 07:31] LABS: Basophils # (auto) 0.01 K/uL (0.00-0.20); Basophils % (auto) 0.3 %; Eosinophils # (auto) 0.36 K/uL (0.00-0.50); Eosinophils % (auto) 10.9 %; Hematocrit (blood only) 33.4 % (37.0-47.0); Hemoglobin 11.1 g/dl (12.0-16.0); Immature Granulocytes # (auto) 0.02 K/uL (0.01-0.20); Immature Granulocytes % (auto) 0.6 %; Lymphocytes # (auto) 0.43 K/uL (1.20-3.40); Lymphocytes % (auto) 13.1 %; Mean Corpuscular Hgb Conc 33.2 g/dL (32.0-36.0); Mean Corpuscular Volume 84.3 fL (80.0-100.0); Mean Platelet Volume 10.1 fL (9.4-12.4); Monocytes # (auto) 0.51 K/uL (0.11-0.59); Monocytes % (auto) 15.5 %; Neutrophils # (auto) 1.96 K/uL (1.40-6.50); Neutrophils % (auto) 59.6 %; Platelet Count 223 K/uL (130-400); RDW Coefficient of Variation 15.1 % (11.5-14.5); RDW Standard Deviation 46.3 fL (36.4-46.3); Red Blood Count 3.96 M/uL (4.20-5.40); White Blood Count 3.29 K/ul (4.8-10.8)
--- NOTE | 2024-02-13 07:42 | Hospitalist Progress Note ---
"Date of Service February 13, 2024 Assessment & Plan (1) Pneumonia of left upper lobe due to infectious organism: (2) Immunocompromised: (3) Non-Hodgkin lymphoma: Plan Pneumonia of left upper lobe -CT chest concerning for LIZETH pneumonia -Started on ertapenem given penicillin allergies -Initially given vancomycin in ED, but with MRSA swab negative it was discontinued -02/12: Due to spiking additional fevers, antibiotic coverage was expanded -Ertapenem d/c. Received 1x Meropenem, now on Cefepime, Vancomycin. -Guaifenesin extended release 1200 mg p.o. twice daily -BioFire negative. Blood Cultures with no growth to date. Sputum culture with normal nash present. -PRN tylenol for fever/pain, PRN Zofran for nausea, PRN albuterol for SOB -Neutropenic precautions Immunocompromised | Non-Hodgkin's Lymphoma -Non-Hodgkin's lymphoma completed chemotherapy above as noted -Presently undergoing immunotherapy every 3 weeks with Lunsumio, with next treatment 02/21/2024 -Bactrim was placed temporarily on hold by oncology in [place], levofloxacin on hold -Follows [facility]. Parks at [facility], will contact prior to discharge to confirm prophylactic antibiotics -Dr. Radha Parks MD [phone] -Mana Simms RN [phone] -Irlanda Coyle RN [phone] -Patient on acyclovir 400mg BID per external records, resumed in hospital -Continue folic acid, vitamin B12, vitamin D3 and aspirin Admission and Anticipated Discharge Date Admission Date: February 11, 2024 Supervising Physician Co-Signing Physician Notes I personally examined the patient and verified all valladaers points of history and exam, discussed case, and agree with decision making with Dr Ashford Feeling okay. Did have a fever. No chills or sweats. No cough or shortness of breath. No other symptoms. Vitals noted, in general she is awake and alert pleasant no distress. HEENT normocephalic atraumatic mucous membranes moist. Breathing unlabored no accessory muscle use good effort. Skin no rashes no pallor or icterus. Neuro without focal deficits. Imaging and labs reviewed. Sepsis present on admissionappears to been due to community-acquired pneumoniashe did not show severe sepsis/septic shock, and her initial antibiotic regimen was more focused at beta-lactam sensitive gram-positives and community-acquired gram-negativesthat said, while she is not getting worse, she is continuing to spike fevers, and logically we should expand coverage to incorporate resistant gram-positives and gram-negativesantibiotics broadened to vancomycin and cefepime. Continue to follow closely. DVT prophylaxis with Lovenox Subjective Patient seen and examined at bedside. Overnight patient had temperature peak at 39.4 and still elevated at 37.9 C at 7am this morning. Patient notes that she di d have some body aches/chills as her temperature spiked overnight. This morning she states she is feeling well otherwise, denies chest pain, shortness of breath. She has been tachycardic for the past week which has been unusual for her, she recalls that her apple watch has been notifying her of an elevated HR for the week prior to admission and her HR has been spiking to 130s-140s with ambulation but has been upper 90s-low 100s while at rest. Review of Systems Review of Systems: As per above Physical Exam Constitutional: WD/WN, vitals as above Eyes: + anicteric sclerae; no conjunctival abn ormality ENMT: Ears: no external ear abnormality Nose: no external nose abnormality Moist mucous membranes Respiratory: normal respiratory effort, lungs clear to auscultation Cardiovascular: Rate/Rhythm: regular rhythm and + tachycardic Gastrointestinal (Abdomen): normal bowel sounds, soft, nontender, no hepatosplenomegaly Skin: no rashes, warm and dry Neurologic: no focal motor deficits Psychiatric: A+Ox3, euthymic affect Results & Data Results & Data Vital Signs (Past 12 Hours) Vital Signs Temp Pulse Pulse Resp BP Pulse Ox O2 Del Method 02/13/24 07:04 37.9 C H 105 H 18 109/75 95 Room Air 02/13/24 02:44 37.8 C H 102 H 18 93/65 L 95 Room Air 02/12/24 22:03 121 H 02/12/24 21:07 37.5 C Resident Activity Tracking Resident Involvement: Resident Care Provided Care Provided: Adult Hospital Medicine"
[2024-02-13 07:49] LABS: Albumin Globulin Ratio 1.3 (0.9-2); Albumin Level 3.6 gm/dl (3.4-5.0); BUN Creatinine Ratio 7.7 (10-20); Bilirubin,Total 0.3 mg/dl (0.2-1.0); Calcium 8.4 mg/dl (8.6-10.3); Creatinine Clr Calc Pharmacy 104.8 ml/min; Est GFR (African American) 104.9 ml/min; Est GFR (Non-African American) 90.5 ml/min; Globulin 2.8 gm/dl (2.5-4.0); Magnesium 1.8 mg/dl (1.7-2.4); Potassium 4.1 mmol/L (3.5-5.1); Total Protein 6.4 gm/dl (6.0-8.3)
[2024-02-13] MEDS ORDERED: VANCOMYCIN CONSULT ACTIVE PRN (11:20)
[2024-02-13] MEDS ORDERED: VANCOMYCIN HCL 1,500 MG in SODIUM CHLORIDE 0.9% 500 ML IV SCH (11:30)
[2024-02-13] MEDS ORDERED: MEROPENEM 1,000 MG in SYRINGE 0 ML IV SCH (12:30)
[2024-02-13] MEDS: VANCOMYCIN HCL 2,500 MG in SODIUM CHLORIDE 0.9% 500 ML IV ONE (13:46)
[2024-02-13] MEDS: MEROPENEM 500 MG in SYRINGE 0 ML IV STA (13:58)
--- NOTE | 2024-02-13 14:14 | Pharmacy Report ---
Pharmacy PK ABX Note - Date of Service February 13, 2024 - Assessment and Plan Assessment 48 year old F receiving empiric vancomycin and cefepime for treatment of febrile illness/possible pneumonia. Pertinent PMH includes Non-Hodgkin lymphoma (completed chemotherapy, currently receiving immunotherapy [id number]). Pertinent microbiologic data includes: Negative MRSA Nasal Swab, blood cultures x 2 (02/09) show no growth to date. Sputum culture (02/11) pending. Patient was originally started on vancomycin x 1 dose on 02/10 and then discontinued due to negative MRSA nasal swab. Intermittent fevers, vancomycin restarted, which is reasonable in light of immunosuppression and fevers. Day # 1 of antimicrobial therapy. Plan Vancomycin * Loading dose: 2500 mg IV x 1 * Maintenance dose: 1250 mg IV every 12 hours * Regimen is predicted to achieve target AUC/MEG of 400-600 mg/L.hr * Will order level if vancomycin is to continue beyond 48 hours Cefepime * 2 g IV q8h - appropriately dosed for renal function/indication Pharmacy will continue to follow and will adjust dose/frequency as necessary. Thank you. Pharmacy has transitioned to AUC monitoring for vancomycin. AUC/MEG is the preferred PK/PD target and is associated with decreased risk of nephrotoxicity compared to traditional trough targets.
--- NOTE | 2024-02-13 18:28 | Billing Data ---
Date of Service February 13, 2024 Coding Level of Care Code 30329 SUB INP/OBS CARE MIN
[2024-02-13] MEDS: CEFEPIME 2,000 MG in SYRINGE 0 ML IV SCH (20:05)
[2024-02-14] MEDS: VANCOMYCIN HCL 1,250 MG in SODIUM CHLORIDE 0.9% 250 ML IV SCH (00:03)
--- NOTE | 2024-02-14 07:11 | Hospitalist Progress Note ---
"Date of Service February 14, 2024 Assessment & Plan (1) Pneumonia of left upper lobe due to infectious organism: (2) Immunocompromised: (3) Non-Hodgkin lymphoma: Plan Pneumonia of left upper lobe -CT chest concerning for LIZETH pneumonia -Started on ertapenem given penicillin allergies -Initially given vancomycin in ED, but with MRSA swab negative it was discontinued -02/12: Due to spiking additional fevers, antibiotic coverage was expanded -Ertapenem d/c. Received 1x Meropenem, now on Cefepime, Vancomycin. -Guaifenesin extended release 1200 mg p.o. twice daily -BioFire negative. Blood Cultures with no growth to date. Sputum culture with normal nash present. -PRN tylenol for fever/pain, PRN Zofran for nausea, PRN albuterol for SOB -Neutropenic precautions Immunocompromised | Non-Hodgkin's Lymphoma -Non-Hodgkin's lymphoma completed chemotherapy above as noted -Presently undergoing immunotherapy every 3 weeks with Lunsumio, with next treatment 02/21/2024 -Bactrim was placed temporarily on hold by oncology in [place], levofloxacin on hold -Follows Dr. aPrks at [facility] -Dr. Radha Parks MD [phone] -Mana Simms, RN [phone] -Irlanda Coyle RN [phone] -02/13: Called provided number for Dr. Parks, was transferred to [employer] for Nurse Navigator, Irlanda Coyle. Left message at approximately 9:10 a.m. and requested call back to discuss prophylactic antibiotics. -At approximately 5pm, received call from Dr. Parks. He clarified that Bactrim was held last week to rule out any contribution to her fever at that time, was then placed on Levaquin instead. Discussed her ongoing fevers at present, Dr. Parks requests a CT scan of her abdomen/pelvis as this was the primary location of her lymphoma and he wants to rule out any progression of lymphoma as the cause of her ongoing fevers. -CT A/P ordered. -Patient on acyclovir 400mg BID per external records, resumed in hospital -Continue folic acid, vitamin B12, vitamin D3 and aspirin Admission and Anticipated Discharge Date Admission Date: February 11, 2024 Supervising Physician Co-Signing Physician Notes I personally examined the patient and verified all valladares points of history and exam, discussed case, and agree with decision making with Dr Ashford Overall feels pretty good. Coughing with a little bit of sputum. No shortness of breath. Had a fever and a sweat earlier Vitals noted, in general she is awake and alert pleasant no distress. HEENT normocephalic atraumatic mucous membranes moist. Breathing unlabored no accessory muscle use good effort. Skin no rashes no pallor or icterus. Neuro without focal deficits. Imaging and labs reviewed. Sepsis present on admissionappears to been due to community-acquired pneumoniashe did not show severe sepsis/septic shock, and her initial antibiotic regimen was more focused at beta-lactam sensitive gram-positives and community-acquired gram-negatives yesterday expanded coverage to incorporate resistant gram-positives and gram-negativesantibiotics broadened to vancomycin and cefepime. Continue to follow closely. DVT prophylaxis with Lovenox. Pulmonary toilet Subjective Patient had fever of 38.5C overnight, was given Tylenol and subsequent temperatures within normal range. Had additional temp to 38.5C this afternoon. Patient seen and examined at bedside. Heart rates remains elevated while at rest and with exertion. Review of Systems Review of Systems: As per above Physical Exam Constitutional: WD/WN, vitals as above Eyes: + anicteric sclerae; no conjunctival abn ormality ENMT: Ears: no external ear abnormality Nose: no external nose abnormality Respiratory: normal respiratory effort, lungs clear to auscultation Cardiovascular: Rate/Rhythm: regular rhythm and + tachycardic Skin: no rashes, warm and dry Neurologic: no focal motor deficits Psychiatric: A+Ox3, euthymic affect Results & Data Results & Data Vital Signs (Past 12 Hours) Vital Signs Temp Pulse Pulse Resp BP Pulse Ox Pulse Ox 02/14/24 05:00 96 02/14/24 03:15 36.9 C 80 18 130/78 96 02/13/24 22:19 104 H 02/13/24 21:59 36.7 C 90 18 114/77 97 02/13/24 21:15 37.1 C 02/13/24 20:03 38.5 C H 02/13/24 19:30 02/13/24 19:13 37.3 C 91 H 18 107/75 99 O2 Del Method O2 Del Method 02/14/24 05:00 Room Air 02/14/24 03:15 Room Air 02/13/24 22:19 02/13/24 21:59 Room Air 02/13/24 21:15 02/13/24 20:03 02/13/24 19:30 Room Air 02/13/24 19:13 Room Air Resident Activity Tracking Resident Involvement: Resident Care Provided Care Provided: Adult Hospital Medicine"
[2024-02-14 07:42] LABS: Basophils # (auto) 0.01 K/uL (0.00-0.20); Basophils % (auto) 0.3 %; Eosinophils # (auto) 0.45 K/uL (0.00-0.50); Eosinophils % (auto) 13.8 %; Hematocrit (blood only) 35.3 % (37.0-47.0); Hemoglobin 11.5 g/dl (12.0-16.0); Immature Granulocytes # (auto) 0.02 K/uL (0.01-0.20); Immature Granulocytes % (auto) 0.6 %; Lymphocytes # (auto) 0.39 K/uL (1.20-3.40); Lymphocytes % (auto) 11.9 %; Mean Corpuscular Hemoglobin 27.6 pg (25.0-34.0); Mean Corpuscular Hgb Conc 32.6 g/dL (32.0-36.0); Mean Corpuscular Volume 84.7 fL (80.0-100.0); Monocytes # (auto) 0.46 K/uL (0.11-0.59); Monocytes % (auto) 14.1 %; Neutrophils # (auto) 1.94 K/uL (1.40-6.50); Neutrophils % (auto) 59.3 %; Platelet Count 222 K/uL (130-400); RDW Standard Deviation 46.4 fL (36.4-46.3); Red Blood Count 4.17 M/uL (4.20-5.40); White Blood Count 3.27 K/ul (4.8-10.8)
[2024-02-14 08:13] LABS: Albumin Globulin Ratio 1.2 (0.9-2); Albumin Level 3.6 gm/dl (3.4-5.0); BUN Creatinine Ratio 13.8 (10-20); Bilirubin,Total 0.3 mg/dl (0.2-1.0); Calcium 8.6 mg/dl (8.6-10.3); Creatinine Clr Calc Pharmacy 124.6 ml/min; Est GFR (African American) 122.5 ml/min; Est GFR (Non-African American) 105.7 ml/min; Globulin 2.9 gm/dl (2.5-4.0); Phosphorus 2.5 mg/dl (2.5-4.9); Total Protein 6.5 gm/dl (6.0-8.3)
[2024-02-14] MEDS: VANCOMYCIN HCL 1,500 MG in SODIUM CHLORIDE 0.9% 500 ML IV SCH (09:17)
[2024-02-14] MEDS: OPTIRAY 320 100ml IV ONE (17:46)
--- NOTE | 2024-02-14 18:11 | CT Scan Report ---
CT abdomen pelvis wo/w con CLINICAL HISTORY: lymphoma w abd presentation, increased fevers TECHNIQUE: Helical axial images of the abdomen and pelvis were obtained. Automated dose lowering tech niques and/or adjustment according to patient size were utilized for this exam. This exam was perfor med with and without intravenous contrast. CT DOSE: 3034.93 mGy.cm COMPARISON: Comparison is made to CT abdomen pelvis 02/11/2024 FINDINGS: Lower chest: Mild groundglass opacities are seen most prominently in the right middle lobe. Liver: Unremarkable. No focal lesions are seen. Gallbladder and biliary tree: Mild pericholecystic fluid is seen, similar to prior exam. No intra- or extrahepatic biliary ductal dilation. Pancreas: Unremarkable, no focal lesions. Spleen: Splenule is incidentally noted. Adrenals: Unremarkable. Kidneys and ureters: Unremarkable. Bladder: Unremarkable. Reproductive organs: IUD is seen. Bowel: Unremarkable. Lymph nodes Retroperitoneal: Unremarkable. Pelvic: Unremarkable. Mesenteric: Unremarkable. Peritoneum: Normal. Vessels: Retroaortic course of the left renal vein is noted. Abdominal wall: Unremarkable. Bones: Degenerative changes in the visualized spine. IMPRESSION: There are abnormalities and in particular no evidence of lymphadenopathy. ACT 112: Negative or not required by law. Electronically signed by: Jose M Clark M.D. 02/14/2024 6:09 PM
--- NOTE | 2024-02-14 19:01 | Billing Data ---
Date of Service February 14, 2024 Coding Level of Care Code 29653 SUB INP/OBS CARE MIN
[2024-02-15 06:49] LABS: Basophils # (auto) 0.01 K/uL (0.00-0.20); Basophils % (auto) 0.3 %; Eosinophils # (auto) 0.44 K/uL (0.00-0.50); Eosinophils % (auto) 13.3 %; Hematocrit (blood only) 31.6 % (37.0-47.0); Hemoglobin 10.5 g/dl (12.0-16.0); Immature Granulocytes # (auto) 0.03 K/uL (0.01-0.20); Immature Granulocytes % (auto) 0.9 %; Lymphocytes # (auto) 0.45 K/uL (1.20-3.40); Lymphocytes % (auto) 13.6 %; Mean Corpuscular Hgb Conc 33.2 g/dL (32.0-36.0); Mean Corpuscular Volume 84.3 fL (80.0-100.0); Mean Platelet Volume 9.6 fL (9.4-12.4); Monocytes # (auto) 0.53 K/uL (0.11-0.59); Neutrophils # (auto) 1.86 K/uL (1.40-6.50); Neutrophils % (auto) 55.9 %; Platelet Count 194 K/uL (130-400); RDW Coefficient of Variation 14.9 % (11.5-14.5); RDW Standard Deviation 45.9 fL (36.4-46.3); Red Blood Count 3.75 M/uL (4.20-5.40); White Blood Count 3.32 K/ul (4.8-10.8)
[2024-02-15 07:20] LABS: BUN Creatinine Ratio 12.5 (10-20); Calcium 7.9 mg/dl (8.6-10.3); Creatinine Clr Calc Pharmacy 129.3 ml/min; Est GFR (African American) 123.2 ml/min; Est GFR (Non-African American) 106.3 ml/min; Potassium 3.8 mmol/L (3.5-5.1)
--- NOTE | 2024-02-15 07:51 | Hospitalist Progress Note ---
"Date of Service February 15, 2024 Assessment & Plan (1) Pneumonia of left upper lobe due to infectious organism: (2) Immunocompromised: (3) Non-Hodgkin lymphoma: Plan Pneumonia of left upper lobe -CT chest concerning for LIZETH pneumonia -Started on ertapenem given penicillin allergies -Initially given vancomycin in ED, but with MRSA swab negative it was discontinued -02/12: Due to spiking additional fevers, antibiotic coverage was expanded -Ertapenem d/c. Received 1x Meropenem, now on Cefepime, Vancomycin. -Guaifenesin extended release 1200 mg p.o. twice daily -BioFire negative. Blood Cultures with no growth to date. Sputum culture with normal nash present. -PRN tylenol for fever/pain, PRN Zofran for nausea, PRN albuterol for SOB -Neutropenic precautions Immunocompromised | Non-Hodgkin's Lymphoma -Non-Hodgkin's lymphoma completed chemotherapy above as noted -Presently undergoing immunotherapy every 3 weeks with Lunsumio, with next treatment 02/21/2024 -Bactrim was placed temporarily on hold by oncology in [place], levofloxacin on hold -Follows Dr. Parks at [facility] -Dr. Radha Parks MD [phone] -Mana Simms, RN [phone] -Irlanda Coyle RN [phone] -02/13: Called provided number for Dr. Parks, was transferred to [employer] for Nurse Navigator, Irlanda Coyle. Left message at approximately 9:10 a.m. and reque sted call back to discuss prophylactic antibiotics. At approximately 5pm, received call from Dr. Parks. He clarified that Bactrim was held last week to rule out any contribution to her fever at that time, was then placed on Levaquin instead. Discussed her ongoing fevers at present, Dr. Parks requests a CT scan of her abdomen/pelvis as this was the primary location of her lymphoma and he wants to rule out any progression of lymphoma as the cause of her ongoing fevers. -CT A/P completed, no evidence of lymphadenopathy. Dr. Parks updated on negative CT. -Patient on acyclovir 400mg BID per external records, resumed in hospital -Continue folic acid, vitamin B12, vitamin D3 and aspirin Admission and Anticipated Discharge Date Admission Date: February 11, 2024 Subjective Patient seen and examined at bedside. Denies any shortness of breath, chest pain. Had one elevated temp to 38.5C at 3pm yesterday. Review of Systems Review of Systems: As per above Physical Exam Constitutional: WD/WN, vitals as above Eyes: + anicteric sclerae; no conjunctival abn ormality ENMT: Ears: no external ear abnormality Nose: no external nose abnormality Respiratory: normal respiratory effort, lungs clear to auscultation Cardiovascular: Rate/Rhythm: regular rate and regular rhythm Skin: no rashes, warm and dry Neurologic: no focal motor deficits Psychiatric: A+Ox3, euthymic affect Results & Data Results & Data Vital Signs (Past 12 Hours) Vital Signs Temp Pulse Pulse Resp BP Pulse Ox O2 Del Method 02/15/24 07:47 37.4 C 93 H 17 117/83 98 Room Air 02/15/24 04:07 37.2 C 86 16 98/66 L 96 Room Air 02/14/24 23:30 37.1 C 82 16 105/73 99 Room Air 02/14/24 21:55 85 Resident Activity Tracking Resident Involvement: Resident Care Provided Care Provided: Adult Hospital Medicine"
[2024-02-15] MEDS: VANCOMYCIN LEVEL ONE (10:00)
--- NOTE | 2024-02-15 11:59 | Pharmacy Report ---
Pharmacy PK ABX Note - Date of Service February 15, 2024 - Assessment and Plan Assessment 48 year old F receiving empiric vancomycin and cefepime for treatment of febrile illness/possible pneumonia. Pertinent PMH includes Non-Hodgkin lymphoma (completed chemotherapy, currently receiving immunotherapy [id number]). Pertinent microbiologic data includes: Negative MRSA Nasal Swab, blood cultures x 2 (02/09) show no growth. Sputum culture (02/11) normal nash. Patient was originally started on vancomycin x 1 dose on 02/10 and then discontinued due to negative MRSA nasal swab. Intermittent fevers, vancomycin restarted 02/12 for 48h empiric tx, which is reasonable in light of immunosuppression and fevers. Dr Ashford would like 24 more hours at this time d/t last fever at 1500 on 02/13, therefore vanc level obtained. Day # 3 of antimicrobial therapy. Plan Vancomycin * Current regimen: 1500 mg IV every 12 hours * Trough level obtained 02/15/24 resulted as 7.6 mcg/mL. This is predicted to achieve target AUC/MEG of 400-600 mg/L.hr * Continue 1500 mg IV every 12 hours * Repeat level ordered if therapy extended again past 72 hours. Cefepime * 2 g IV q8h - appropriately dosed for renal function/indication Pharmacy will continue to follow and will adjust dose/frequency as necessary. Thank you. Pharmacy has transitioned to AUC monitoring for vancomycin. AUC/MEG is the preferred PK/PD target and is associated with decreased risk of nephrotoxicity compared to traditional trough targets.
[2024-02-15] MEDS: CEFEPIME 2,000 MG in SYRINGE 0 ML IV ONE (16:56)
--- NOTE | 2024-02-15 17:10 | Discharge Summary ---
"Date of Service February 15, 2024 Admission HPI Per Admitting Provider The patient is a 48-year-old female presently undergoing every 3 week immunotherapy for lymphoma, with next dosing due on 02/21/2024. Over the past 5 days she has had some mild respiratory symptoms of shortness of breath and dyspnea on exertion, with an intermittent low-grade temperature. She saw her oncologist the morning of 02/10 in [place], and had her prophylactic Bactrim changed to levofloxacin, and was told to present to the emergency department if she had recurrent temperatures. She developed a temperature again later on this evening, presented to the emergency department at [facility] for assessment, and workup including chest x-ray and CT angiography of chest showed a left upper lobe pneumonia necessitating IV antibiotic therapy, and was referred to the hospitalist service for admission Admission Exam Per Admitting Provider The patient is awake, alert and oriented 3, well developed and well nourished, normocephalic and atraumatic, lying in bed and in no acute distress. HEENT--PERRL, EOMI, mucous membranes and oropharynx normal. Neck--supple. No JVD. No bruits. Thyroid normal, trachea midline, no adenopathy. Heart--normal S1 and S2. No murmurs, rubs or gallops. Lungs--few coarse breath sounds left upper and middle lobes. No respiratory distress, no accessory muscle use. Abdomen--normal bowel sounds and soft. Nontender. Nondistended. Extremities--No edema. Dermatologic--normal skin turgor, normal color, no abnormal lymph nodes, no rash. Neurologic--cranial nerves II through XII grossly intact. Rheumatologic--normal range of motion. Psychiatric--normal affect. Principal Diagnosis Pneumonia Discharge Exam Constitutional WD/WN, vitals as above Eyes + anicteric sclerae; no conjunctival abnormality ENMT Ears: no external ear abnormality Nose: no external nose abnormality Moist mucous membranes Respiratory normal respiratory effort, lungs clear to auscultation Cardiovascular Rate/Rhythm: regular rate and regular rhythm Extremities: no edema Skin no rashes, warm and dry Neurologic no focal motor deficits Psychiatric A+Ox3, euthymic affect Discharge Data Allergies Allergy/AdvReac Type Severity Reaction Status Date / Time Penicillins Allergy Severe Anaphylaxis Verified 02/11/24 17:57 Consultations 02/11/24 04:34 ED Decision to Admit Stat Ordered Studies 02/11/24 01:03 CT abd pelvis IV con only Stat CT angio chest PE protocol Stat 02/14/24 17:13 CT Abd and Pelvis [CT abdomen pelvis wo/w con] Urgent Chest X-Ray 02/10/24 23:27 XR chest 1V portable CLINICAL HISTORY: Sepsis COMPARISON STUDY: PET/CT November 17, 2022. Chest radiograph September 07, 2022. FINDINGS: There is no pneumothorax or pleural effusion. Pulmonary vascularity is normal. Band-like left upper lobe airspace opacity is present. Cardiomediastinal silhouette is unremarkable. IMPRESSION: Left upper lobe airspace opacity suggestive of pneumonia. Post treatment radiographs to ensure resolution are recommended. ACT 112: Negative or not required by law. Electronically signed by: Roger Chang M.D. 02/11/2024 7:52 AM Abdomen/Pelvis CT 02/11/24 01:03 Exam(s): CT ABDOMEN + PELVIS With Contrast IV Amt: 117 ml EXAM: CT Abdomen and Pelvis With Intravenous Contrast CLINICAL HISTORY: Reason for exam: fever/sepsis, lymphoma. TECHNIQUE: Axial computed tomography images of the abdomen and pelvis with intravenous contrast. CTDI is 28.14 mGy and DLP is 1457.61 mGy-cm. Automated exposure control was utilized for the study. A dose lowering technique was utilized adhering to the principles of ALARA. CONTRAST: Patient received 117 ml of IV contrast COMPARISON: No relevant prior studies available. FINDINGS: Lung bases: Unremarkable. No mass. No consolidation. Mediastinum: Small hiatal hernia. ABDOMEN: Liver: Unremarkable. No mass. Gallbladder and bile ducts: Unremarkable. No calcified stones. No ductal dilation. Pancreas: Unremarkable. No mass. No ductal dilation. Spleen: Unremarkable. No splenomegaly. Adrenals: Unremarkable. No mass. Kidneys and ureters: Retroaortic left renal vein. No hydronephrosis or delayed nephrogram. Stomach and bowel: Unremarkable. No obstruction. No mucosal thickening. PELVIS: Appendix: No findings to suggest acute appendicitis. Bladder: Unremarkable. No mass. Reproductive: Unremarkable as visualized. ABDOMEN and PELVIS: Intraperitoneal space: Unremarkable. No free air. No significant fluid collection. Bones/joints: No acute fracture. No dislocation. Soft tissues: Unremarkable. Vasculature: See above. Lymph nodes: Unremarkable. No enlarged lymph nodes. IMPRESSION: No acute findings in the abdomen or pelvis. Electronically signed by: Omari Kingsley MD 02/11/24 03:57 AM Chest CTA 02/11/24 01:03 Exam(s): CTA CHEST IV Amt: 117ml EXAM: CT Angiography Chest With Intravenous Contrast CLINICAL HISTORY: Reason for exam: cp, sob, fever, lymphoma, r/o PE. TECHNIQUE: Axial computed tomographic angiography images of the chest with intravenous contrast. CTDI is 27.86 mGy and DLP is 816.02 mGy-cm. Automated exposure control was utilized for the study. A dose lowering technique was utilized adhering to the principles of ALARA. MIP reconstructed images were created and reviewed. COMPARISON: No relevant prior studies available. FINDINGS: Pulmonary arteries: Unremarkable. No pulmonary embolism. Aorta: No acute findings. No thoracic aortic aneurysm. Lungs: Airspace consolidation throughout the left upper lobe, consistent with pneumonia. Pleural space: Unremarkable. No significant effusion. No pneumothorax. Heart: Unremarkable. No cardiomegaly. No significant pericardial effusion. No evidence of RV dysfunction. Mediastinum: Small hiatal hernia. Bones/joints: No acute fracture. No dislocation. Soft tissues: Unremarkable. Lymph nodes: Unremarkable. No enlarged lymph nodes. Liver: Hepatic steatosis. IMPRESSION: Airspace consolidation throughout the left upper lobe, consistent with pneumonia. Electronically signed by: Omari Kingsley MD 02/11/24 02:40 AM Abdomen/Pelvis CT 02/14/24 17:13 CT abdomen pelvis wo/w con CLINICAL HISTORY: lymphoma w abd presentation, increased fevers TECHNIQUE: Helical axial images of the abdomen and pelvis were obtained. Automated dose lowering techniques and/or adjustment according to patient size were utilized for this exam. This exam was performed with and without intravenous contrast. CT DOSE: 3034.93 mGy.cm COMPARISON: Comparison is made to CT abdomen pelvis 02/11/2024 FINDINGS: Lower chest: Mild groundglass opacities are seen most prominently in the right middle lobe. Liver: Unremarkable. No focal lesions are seen. Gallbladder and biliary tree: Mild pericholecystic fluid is seen, similar to prior exam. No intra- or extrahepatic biliary ductal dilation. Pancreas: Unremarkable, no focal lesions. Spleen: Splenule is incidentally noted. Adrenals: Unremarkable. Kidneys and ureters: Unremarkable. Bladder: Unremarkable. Reproductive organs: IUD is seen. Bowel: Unremarkable. Lymph nodes Retroperitoneal: Unremarkable. Pelvic: Unremarkable. Mesenteric: Unremarkable. Peritoneum: Normal. Vessels: Retroaortic course of the left renal vein is noted. Abdominal wall: Unremarkable. Bones: Degenerative changes in the visualized spine. IMPRESSION: There are abnormalities and in particular no evidence of lymphadenopathy. ACT 112: Negative or not required by law. Electronically signed by: Jose M Clark M.D. 02/14/2024 6:09 PM Hospital Course (1) Pneumonia of left upper lobe due to infectious organism: (2) Immunocompromised: (3) Non-Hodgkin lymphoma: Plan Pneumonia of left upper lobe -CT chest concerning for LIZETH pneumonia -Started on ertapenem given penicillin allergies -Initially given vancomycin in ED, but with MRSA swab negative it was discontinued -BioFire negative. Blood Cultures with no growth. Sputum culture with only normal nash present. -02/12: Due to spiking additional fevers (Tmax 39.4), antibiotic coverage was expanded with a 1x dose of Meropenem and subsequently placed on Cefepime and Vancomycin. -Last fever (38.5C) at 3pm on 02/13, was fever free for >24 hours at time of discharge -Considering pseudomonas and MRSA coverage was ongoing while fevers resolved, will maintain this coverage with outpatient antibiotic treatment. -Prescribed 7 days of outpatient doxycycline and ciprofloxacin (for total length of treatment of 10 days) at time of discharge, will begin this on a.m. of 02/16/24 -Upon completion of outpatient antibiotics, patient can resume Bactrim prophylactic antibiotic per oncology recommendation. Immunocompromised | Non-Hodgkin's Lymphoma -Non-Hodgkin's lymphoma completed chemotherapy above as noted -Presently undergoing immunotherapy every 3 weeks with Lunsumio, with next treatment 02/21/2024 -Bactrim was placed temporarily on hold by oncology in [place], was temporarily switched to Levaquin due to fever prior to admission. Held at time of admission. -Follows Dr. Parks at [facility] -Dr. Radha Parks MD [phone] -Mana Simms, RN [phone] -Irlanda Coyle, RN [phone] -02/13: Called provided number for Dr. Parks, was transferred to [facility] for Nurse Navigator, Irlanda Coyle. Left message at approximately 9:10 a.m. and requested call back to discuss prophylactic antibiotics. At approximately 5pm, received call from Dr. Parks. He clarified that Bactrim was held last week to rule out any contribution to her fever at that time, was then placed on Levaquin instead. Discussed her ongoing fevers at present, Dr. Parks requests a CT scan of her abdomen/pelvis as this was the primary location of her lymphoma and he wants to rule out any progression of lymphoma as the cause of her ongoing fevers. -CT A/P completed, no evidence of lymphadenopathy. Dr. Parks updated on negative CT. -Patient scheduled for PET scan and follow up with Dr. Parks on 02/17/24 -Patient on acyclovir 400mg BID per external records, continue at time of discharge Total Time Total Time Spent Total Time Spent (In Minutes): .<30 Discharge Plan Discharge Items Patient Disposition: Home - Self-Care Reason For Visit: LIZETH PNEUMONIA, LYMPHOMA ON IMMUNOTHERAPY Discharge Diagnosis: pneumonia Activity: Per Instructions section Non-emergency contact: Primary Care Provider and Oncologist Call non-emergency contact if: you have any medication questions Follow-up/Referrals: Ronaldo Brenner [Primary Care Provider] - 02/16/24 10:45 am (Please schedule hospital discharge follow up appointment within 1 week Scheduled for 02/16/24 at 10:[address] Brenner) Diet: Regular Addtl Attending Provider Instructions: You were admitted to the hospital for fever and were diagnosed with pneumonia. You were treated with broad spectrum IV antibiotics and fortunately at the time of discharge, you have been fever free for >24 hours. You also had a CT scan of your abdomen which did not show any evidence of lymphadenopathy. A discharge summary will be sent to your primary care physician to ensure continuity of care. Follow-up appointments: Make a follow-up appointment with your PCP within the next week. It is very important that you follow up with them shortly after discharge from the hospital. Keep scheduled appointments with your oncology team at [facility]. Medications: Your medication list has been reviewed and reconciled upon discharge to ensure accuracy and continuity of care. An updated list of all your medications is included with your hospital discharge paperwork. Please review this list closely, and make note of any changes. You should start these antibiotics tomorrow morning (02/15). We sent a new medication called Doxycycline to your pharmacy. Take Doxycycline 100mg one capsule twice daily for 7 days. We sent a new medication called Ciprofloxacin to your pharmacy. Take Ciprofloxacin 750mg one tablet every 12 hours for 7 days. CALL 911 OR GO TO THE EMERGENCY DEPARTMENT if you experience any of the following: Sudden, severe abdominal pain or nausea/vomiting Severe chest pain, or chest pain that radiates (moves) to your jaw or arm Sudden, severe shortness of breath or difficulty breathing Thank you for allowing us to participate in your care. Pending Studies at Discharge: No Stand-Alone Forms: My [facility] [employer], Smoking Cessation Medications and DC Order Prescriptions: New doxycycline hyclate 100 mg capsule 100 mg PO BID 7 Days Qty: 14 0RF ciprofloxacin HCl 750 mg tablet 750 mg PO Q12H 7 Days Qty: 14 0RF Continued cyanocobalamin (vitamin B-12) [Vitamin B-12] 1,000 mcg Tablet 1,000 mcg PO QAM acyclovir 400 mg tablet 400 mg PO BID Lunsumio 1 mg/mL Solution 0 mg IV UD Rx Instructions: Patient unsure of strength at this time, but gets this every 3 weeks Discontinued levofloxacin 500 mg tablet 500 mg PO DAILY Rx Instructions: Start Date 02/10/24 - End Date 02/14/24. As of 02/11/24 pt has only taken 1 dose Discharge Orders: Discharge Order (Routine); Ordered 02/15/24 Ordered By: Diana Hackett/Other Patient Handouts: Neutropenia Admission Data Admit Date/Time: 02/11/24 04:07 Attending Provider: Dev Mcdowell Admit Provider: Daniel Marin Primary Care Provider: Ronaldo Brenner Other Providers: Daniel Marin Other Interventions: Discharge Summary Assessment (RN) Last Done: 02/15/24 16:36 Supervising Physician Co-Signing Physician Notes I personally examined the patient and verified all valladares points of history and exam, discussed case, and agree with decision making with Dr Ashford Feels good. No fevers for greater than 24 hours. No sweats either. Would very much like to go home. Vitals noted, in general she is awake and alert pleasant no distress. HEENT normocephalic atraumatic mucous membranes moist. Breathing unlabored no accessory muscle use good effort. Skin no rashes no pallor or icterus. Neuro without focal deficits. Imaging and labs reviewed. Sepsis present on admissionappears to been due to community-acquired pneumoniashe did not show severe sepsis/septic shock, and her initial antibiotic regimen was more focused at beta-lactam sensitive gram-positives and community-acquired gram-negatives After we expanded coverage to incorporate resistant gram-positives and gram-negativesantibiotics broadened to vancomycin and cefepime she seems to show more improvementappears safe/stable for home and she very much wants to get homehome on MRSA and Pseudomonas coverage with Doxy and Cipro. Close PCP and oncology follow-up. Otherwise as above."
--- NOTE | 2024-02-15 17:35 | Billing Data ---
Date of Service February 15, 2024 Coding Level of Care Code 97742 IN/OBS DISCH 30 MIN/LESS
== END 2024-02-15 17:36 | disposition home or self-care (01) | DRG 871 ==
LOC: ED 22:59 → 2S 02-11 04:07 → SUATTDRO 02-11 04:07 → 2S 02-11 05:00
DX: D84.821 Immunodeficiency due to drugs; A41.9 Sepsis, unspecified organism; I45.10 Unspecified right bundle-branch block; C85.90 Non-Hodgkin lymphoma, unspecified, unspecified site; Z86.16 Personal history of COVID-19; Z88.0 Allergy status to penicillin; J18.9 Pneumonia, unspecified organism; Z79.82 Long term (current) use of aspirin